=== PATIENT | male | born 1955 | race Caucasian/White ===

== ENCOUNTER 2024-12-15 14:35 | Outpatient (CLI) | payer MEDICARE, SELFPAY ==
--- NOTE | ~2024-12-15 | MR_ITS ---
MRI of the brain Clinical History: Vertigo Technique: Axial and sagittal T1-weighted images were acquired. These were followed by axial T2-weigh demond, diffusion weighted, gradient, and FLAIR images. Coronal and axial thin cut T1-weighted and T2-we ighted images were performed through the internal auditory canals. Following intravenous administrati on of 16 cc MultiHance gadolinium, T1-weighted fat-sat imaging was performed through the brain in the axial and coronal planes. Thin cut T1-weighted postcontrast imaging was performed through the administration intern al auditory canals in the axial and coronal planes. Findings: No acute infarct, internal hemorrhage, or mass lesion seen. There are mild chronic microvas cular ischemic changes in the periventricular white matter bilaterally. Ventricles and subarachnoid spaces are unremarkable. Orbits are unremarkable. Paranasal sinuses and m astoid air cells are clear. Major intracranial flow voids appear intact. Sagittal midline structures are intact. No abnormal mass lesion seen at the internal auditory canals or CP angle regions. No abnormal postcontrast enhancement identified. IMPRESSION: Mild chronic microvascular ischemic changes, otherwise unremarkable exam. Reviewed, dictated and finalized at location M.
--- OUTSIDE RECORDS SUMMARY | 2024-12-15 16:05 | XMS_ITS | Continuity of Care Document ---
Author Organization [facility] Address [address] [place] [address] Phone Care Team Providers Care Event Executive Name Role Phone Emmie Vazquez Unavailable Unavailable Procedures Procedure Date Eye Exam & Treatment Refraction Eye Exam & Treatment Progressive Lens, Plastic Frames Deluxe Tint Photochromatic, Plastic Anti-reflective Coating Tax - Medical Eye Exam & Treatment Refraction Advance Directives Directive Yes / No Effective Date File Name No Information Encounters Encounter Description Practice Location Reason(s) For Visit Diagnoses Date Provider Providers Copied on Encounter [facility], [address] [place] [address] [address], [place], [place], [id number], [place] tel:[phone] [facility] No Information 4-201 0 Taylor Camarillo [address] , [address], [place], [place], [facility], [place]. tel:[phone] [facility], [id number] [place] [address] [address], [place], [place], [id number], [place] tel:[phone] [facility] No Information November-0 7-200 9 Tayolr Camarillo [address] , [address], [place], [address], [place]. tel:[phone] [facility], [address] [place] [address] [address], [place], [place], [id number], [place] tel:[phone] [facility] No Information 8 [facility] . [address], [address], [place], [place], [id number], [place]. tel:[phone] Referring Provider: Wali Mercado OD Nav, [address] [place] [address] Dr [address], [place], [address]. tel:[phone] sulting Provider: Regino Kimball, [address] [place] [address], [place], [address]. tel:[phone] [facility], [address], [place], [place], [id number], [place] tel:[phone] [facility] No Information 8 Mercado OD Wali. [address] [place] [address] , [address], [place], [address], [place]. tel:[phone] Family History Family Member Type Diagnosis Age At Onset No Information Payers Payer name Insurance type Covered alliance party ID Authordelisaa tommywilma(s) [employer] Plan [id number] Social History Type Description Quantity Date Captured Comments Sex Male Smoking Status No Information Chief Complaint And Reason For Visit No Information Reason For Referral Reason For Referral No Information History Of Present Illness Encounter Date Complaint History Of Prese nt Illness No Information Functional Status Date Functional Assessmen t No Information Instructions Date Instruction Additional Infor mation No Information Assessments Type Assessment Date No Information Patient Care Teams Name Effective Dates (start - stop) Status Members No Information
--- OUTSIDE RECORDS SUMMARY | 2024-12-15 16:05 | XMS_ITS | Data Portability ---
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 Repeat blood work trial of cholestyramine empirically 1 scoop daily let me know in a month how that is going on CBC CMP a lipid a PSA regular medical problems are stable stop the nortriptyline and see me in 6 Not available 06/17/2024 22:16:33 11/24/2024 11/24/2024 Valium for vestibular suppression vestibular therapy MRI brain with and without to include internal auditory canals see me in 3 weeks Not available 11/29/2024 21:45:24 Plan of Treatment Reminders Order Date Submit Date Provider Last Modified By Organization Details Last Modified Time Details Appointments ANY 15 2024 11:15A Michael Ceja MD Not available Not available Not available Lab PSA, total, serum or plasma 2023 024 [facility], [address] [facility], [address], [place], [address], 06/17/2024 14:07:02 CBC w/ auto diff 2023 024 [facility], [address], [address], [place], [address], 06/17/2024 14:07:01 CMP, serum or plasma 2023 024 [facility], [address], [address], [place], [address], 06/17/2024 14:06:59 lipid panel, serum 2023 024 [facility], [address], [address], [place], [address], 06/17/2024 14:06:58 C diff toxin A+B, qual IA, stool 2023 024 [facility], [address], [address], [place], [address], 12/27/2023 11:34:04 CBC 2023 024 [facility], [address], [address], [place], [address], 12/18/2023 11:15:08 CMP, serum or plasma 2023 024 [facility], [facility] [address], [place], [address], 12/18/2023 11:15:06 culture, stool - Stool C&S 2023 024 [facility], [address], [address], [place], [address], 12/27/2023 11:34:03 lipid panel, serum 2023 024 [facility], [address] [facility], [address], [place], [address], 12/18/2023 11:15:05 Referral vestibula r therapy referral 2024 025 [email or web address] [facility] [place], [address] [facility] [place] [facility], [place], [address], 12/15/2024 09:54:00 Procedures None recorded. Surgeries None recorded. Imaging MRI, brain + internal auditory canal, w/wo contrast 2024 025 [email or web address] [facility] ([facility]), [facility] [address], [place], [address], 11/24/2024 15:44:37 Medication Orders cholestyr amine (with sugar) 4 gram oral powder 2023 024 [email or web address] [id number], [address], [place], [address], 07/10/2024 10:32:58 Flagyl 500 mg tablet 2023 024 [email or web address] [id number], [address], [place], [address], 06/16/2024 14:10:40 Patient TargetsNo targets recorded. Patient Instructions Encounter Date Encounter Id Patient Instructions Last Modified By Organization Details Last Modified Time 11/24/2024 [id number] A healthy lifestyle: care instructions [email or web address] Not available 11/24/2024 15:44:37 Reason for Referral Vestibular Therapy Referral for Vertigo Referring Physician: Linda Ceja, Internal Medicine, Encounter Date: 11/24/2024 Results Created Date Observation Date Name Description Value Unit Range Abnormal Flag Note LastModifiedBy Organization Detail LastModifiedTime 12/17/19 24 12/18/2023 LIPID PANEL cholesterol, total 170 mg/dL 100-19 9 Not Available [facility] ([facility]) [address] [place], [address], 12/18/2023 11:15:05 12/17/19 24 12/18/2023 LIPID PANEL triglyceride s 70 mg/dL 0-149 Not Available [facility] ([facility]) [address] [place], [address], 12/18/2023 11:15:05 12/17/19 24 12/18/2023 LIPID PANEL HDL cholesterol 70 mg/dL >39 Not Available [facility] ([facility]) [address] [place], [address], 12/18/2023 11:15:05 12/17/19 24 12/18/2023 LIPID PANEL VLDL cholesterol davidson 13 mg/dL 5-40 Not Available [facility] ([facility]) [address] [place], [address], 12/18/2023 11:15:05 12/17/19 24 12/18/2023 LIPID PANEL LDL chol calc ([facility]) 87 mg/dL 0-99 Not Available [facility] ([facility]) [address] [place], [address], 12/18/2023 11:15:05 12/17/19 24 12/18/2023 COMP. METAB OLIC PANEL (14) glucose 84 mg/dL 70-99 Not Available [facility] ([facility]) [address] [place], [address], 12/18/2023 11:15:06 12/17/19 24 12/18/2023 COMP. METAB OLIC PANEL (14) BUN 12 mg/dL 8-27 Not Available [facility] ([facility]) [address] [place], [address], 12/18/2023 11:15:06 12/17/19 24 12/18/2023 COMP. METAB OLIC PANEL (14) creatinine 0.99 mg/dL 0.76-1 .27 Not Available [facility] ([facility]) [address], [place], [address], 12/18/2023 11:15:06 12/17/19 24 12/18/2023 COMP. METAB OLIC PANEL (14) eGFR 82 mL/mi n/1.7 3 >59 Not Available [facility] ([facility]) [address], [place], [address], 12/18/2023 11:15:06 12/17/19 24 12/18/2023 COMP. METAB OLIC PANEL (14) BUN/creatini ne ratio 12 04-30 Not Available [facility] ([facility]) [address] [place], [address], 12/18/2023 11:15:06 12/17/19 24 12/18/2023 COMP. METAB OLIC PANEL (14) sodium 145 mmol/ L 134-14 4 above high normal Not Available [facility] ([facility]) [address] [place], [address], 12/18/2023 11:15:06 12/17/19 24 12/18/2023 COMP. METAB OLIC PANEL (14) potassium 4.2 mmol/ L 3.5-5. 2 Not Available [facility] ([place] [facility]) [address] [place], [address], 12/18/2023 11:15:06 12/17/19 24 12/18/2023 COMP. METAB OLIC PANEL (14) chloride 107 mmol/ L 96-106 above high normal Not Available [facility] ([facility]) [address] [place], [address], 12/18/2023 11:15:06 12/17/19 24 12/18/2023 COMP. METAB OLIC PANEL (14) carbon dioxide, total 24 mmol/ L 20-29 Not Available [facility] ([facility]) [address] [place], [address], 12/18/2023 11:15:06 12/17/19 24 12/18/2023 COMP. METAB OLIC PANEL (14) calcium 9.4 mg/dL 8.6-10 .2 Not Available [facility] ([facility]) [address], [place], [address], 12/18/2023 11:15:06 12/17/19 24 12/18/2023 COMP. METAB OLIC PANEL (14) protein, total 6.9 g/dL 6.0-8. 5 Not Available [facility] ([facility]) [address] [place], [address], 12/18/2023 11:15:06 12/17/19 24 12/18/2023 COMP. METAB OLIC PANEL (14) albumin 4.6 g/dL 3.9-4. 9 Not Available [facility] ([facility]) [address], [place], [address], 12/18/2023 11:15:06 12/17/19 24 12/18/2023 COMP. METAB OLIC PANEL (14) globulin, total 2.3 g/dL 1.5-4. 5 Not Available [facility] ([facility]) [address], [place], [address], 12/18/2023 11:15:06 12/17/19 24 12/18/2023 COMP. METAB OLIC PANEL (14) A/G ratio 2.0 Not Available [facility] ([facility]) [address] [place], [address], 12/18/2023 11:15:06 12/17/19 24 12/18/2023 COMP. METAB OLIC PANEL (14) bilirubin, total <0.2 mg/dL 0.0-1. 2 Not Available [facility] ([facility]) [address] [place], [address], 12/18/2023 11:15:06 12/17/19 24 12/18/2023 COMP. METAB OLIC PANEL (14) alkaline phosphatase 88 IU/L 44-121 Not Available [facility] ([facility]) [address], [place], [address], 12/18/2023 11:15:06 12/17/19 24 12/18/2023 COMP. METAB OLIC PANEL (14) AST (SGOT) 22 IU/L 0-40 Not Available [facility] ([facility]) [address], [place], [address], 12/18/2023 11:15:06 12/17/19 24 12/18/2023 COMP. METAB OLIC PANEL (14) ALT (SGPT) 18 IU/L 0-44 Not Available [facility] ([facility]) [address] [address], [place], [address], 12/18/2023 11:15:06 12/17/19 24 12/18/2023 CBC, PLATE LET, NO DIFFE RENTI AL WBC 5.2 x10e3 /uL 3.4-10 .8 Not Available [facility] ([facility]) [address], [place], [address], 12/18/2023 11:15:08 12/17/19 24 12/18/2023 CBC, PLATE LET, NO DIFFE RENTI AL RBC 4.35 x10e6 /uL 4.14-5 .80 Not Available [facility] ([facility]) [address] [place], [address], 12/18/2023 11:15:08 12/17/19 24 12/18/2023 CBC, PLATE LET, NO DIFFE RENTI AL hemoglobin 12.8 g/dL 13.0-1 7.7 below low normal Not Available [facility] ([facility]) [address], [place], [address], 12/18/2023 11:15:08 12/17/19 24 12/18/2023 CBC, PLATE LET, NO DIFFE RENTI AL hematocrit 38.5 % 37.5-5 1.0 Not Available [facility] ([facility]) [address], [place], [address], 12/18/2023 11:15:08 12/17/19 24 12/18/2023 CBC, PLATE LET, NO DIFFE RENTI AL MCV 89 fL 79-97 Not Available [facility] ([facility]) [address], [place], [address], 12/18/2023 11:15:08 12/17/19 24 12/18/2023 CBC, PLATE LET, NO DIFFE RENTI AL MCH 29.4 pg 26.6-3 3.0 Not Available [facility] ([facility]) [address], [place], [address], 12/18/2023 11:15:08 12/17/19 24 12/18/2023 CBC, PLATE LET, NO DIFFE RENTI AL MCHC 33.2 g/dL 31.5-3 5.7 Not Available [facility] ([facility]) [address], [place], [address], 12/18/2023 11:15:08 12/17/19 24 12/18/2023 CBC, PLATE LET, NO DIFFE RENTI AL RDW 12.2 % 11.6-1 5.4 Not Available [facility] ([facility]) [address] [place], [address], 12/18/2023 11:15:08 12/17/19 24 12/18/2023 CBC, PLATE LET, NO DIFFE RENTI AL platelets 304 x10e3 /uL 150-45 0 Not Available [facility] ([facility]) [address], [place], [address], 12/18/2023 11:15:08 12/19/19 24 12/20/2023 C DIFFI CILE TOXIN S A+B, EIA C difficile toxins A+B, EIA Negati ve negati ve Not Available [facility] ([facility]) [address], [place], [address], 12/20/2023 17:10:29 12/19/19 24 12/23/2023 YERSI DEEP + VIBRI O, STOOL yersinia + vibrio, stool Final report Not Available [facility] ([facility]) [address], [place], [address], 12/23/2023 17:08:38 12/19/19 24 12/23/2023 YERSI DEEP + VIBRI O, STOOL result 1 No Vibrio isolat ed. Not Available [facility] ([facility]) [address], [place], [address], 12/23/2023 17:08:38 12/19/19 24 12/23/2023 YERSI DEEP + VIBRI O, STOOL result 2 No Yersin ia isolat ed Not Available [facility] ([facility]) [address], [place], [address], 12/23/2023 17:08:38 06/16/20 24 06/17/2024 LIPID PANEL cholesterol, total 158 mg/dL 100-19 9 Not Available [facility] ([facility]) [address] [place], [address], 06/17/2024 14:06:58 06/16/20 24 06/17/2024 LIPID PANEL triglyceride s 69 mg/dL 0-149 Not Available [facility] ([facility]) [address] [place], [address], 06/17/2024 14:06:58 06/16/20 24 06/17/2024 LIPID PANEL HDL cholesterol 67 mg/dL >39 Not Available [facility] ([facility]) [address] [place], [address], 06/17/2024 14:06:58 06/16/20 24 06/17/2024 LIPID PANEL VLDL cholesterol davidson 13 mg/dL 5-40 Not Available [facility] ([facility]) [address], [place], [address], 06/17/2024 14:06:58 06/16/20 24 06/17/2024 LIPID PANEL LDL chol calc ([facility]) 78 mg/dL 0-99 Not Available [facility] ([facility]) [address], [place], [address], 06/17/2024 14:06:58 06/16/20 24 06/17/2024 COMP. METAB OLIC PANEL (14) glucose 83 mg/dL 70-99 Not Available [facility] ([facility]) [address], [place], [address], 06/17/2024 14:06:59 06/16/20 24 06/17/2024 COMP. METAB OLIC PANEL (14) BUN 13 mg/dL 8-27 Not Available [facility] ([facility]) [address] [place], [address], 06/17/2024 14:06:59 06/16/20 24 06/17/2024 COMP. METAB OLIC PANEL (14) creatinine 0.86 mg/dL 0.76-1 .27 Not Available [facility] ([facility]) [address], [place], [address], 06/17/2024 14:06:59 06/16/20 24 06/17/2024 COMP. METAB OLIC PANEL (14) eGFR 93 mL/mi n/1.7 3 >59 Not Available [facility] ([facility]) [address] [place], [address], 06/17/2024 14:06:59 06/16/20 24 06/17/2024 COMP. METAB OLIC PANEL (14) BUN/creatini ne ratio 15 10-24 Not Available [facility] ([facility]) [address], [place], [address], 06/17/2024 14:06:59 06/16/20 24 06/17/2024 COMP. METAB OLIC PANEL (14) sodium 142 mmol/ L 134-14 4 Not Available [facility] ([facility]) [address] [place], [address], 06/17/2024 14:06:59 06/16/20 24 06/17/2024 COMP. METAB OLIC PANEL (14) potassium 4.2 mmol/ L 3.5-5. 2 Not Available [facility] ([facility]) [address] [place], [address], 06/17/2024 14:06:59 06/16/20 24 06/17/2024 COMP. METAB OLIC PANEL (14) chloride 106 mmol/ L 96-106 Not Available [facility] ([facility]) [address] [place], [address], 06/17/2024 14:06:59 06/16/20 24 06/17/2024 COMP. METAB OLIC PANEL (14) carbon dioxide, total 22 mmol/ L 20-29 Not Available [facility] ([facility]) [address] [place], [address], 06/17/2024 14:06:59 06/16/20 24 06/17/2024 COMP. METAB OLIC PANEL (14) calcium 9.3 mg/dL 8.6-10 .2 Not Available [facility] ([facility]) [address] [place], [address], 06/17/2024 14:06:59 06/16/20 24 06/17/2024 COMP. METAB OLIC PANEL (14) protein, total 6.9 g/dL 6.0-8. 5 Not Available [facility] ([facility]) [address] [place], [address], 06/17/2024 14:06:59 06/16/20 24 06/17/2024 COMP. METAB OLIC PANEL (14) albumin 4.3 g/dL 3.9-4. 9 Not Available [facility] ([facility]) [address], [place], [address], 06/17/2024 14:06:59 06/16/20 24 06/17/2024 COMP. METAB OLIC PANEL (14) globulin, total 2.6 g/dL 1.5-4. 5 Not Available [facility] ([facility]) [address], [place], [address], 06/17/2024 14:06:59 06/16/20 24 06/17/2024 COMP. METAB OLIC PANEL (14) bilirubin, total 0.4 mg/dL 0.0-1. 2 Not Available [facility] ([facility]) [address], [place], [address], 06/17/2024 14:06:59 06/16/20 24 06/17/2024 COMP. METAB OLIC PANEL (14) alkaline phosphatase 104 IU/L 44-121 Not Available [facility]) [address], [place], [address], 06/17/2024 14:06:59 06/16/20 24 06/17/2024 COMP. METAB OLIC PANEL (14) AST (SGOT) 22 IU/L 0-40 Not Available [facility] ([facility]) [address], [place], [address], 06/17/2024 14:06:59 06/16/20 24 06/17/2024 COMP. METAB OLIC PANEL (14) ALT (SGPT) 18 IU/L 0-44 Not Available [facility] ([facility]) [address], [place], [address], 06/17/2024 14:06:59 06/16/20 24 06/17/2024 CBC WITH DIFFE RENTI AL/PL ATELE T WBC 7.0 x10e3 /uL 3.4-10 .8 Not Available [facility] ([facility]) [address], [place], [address], 06/17/2024 14:07:01 06/16/20 24 06/17/2024 CBC WITH DIFFE RENTI AL/PL ATELE T RBC 4.40 x10e6 /uL 4.14-5 .80 Not Available [facility] ([facility]) [address], [place], [address], 06/17/2024 14:07:01 06/16/20 24 06/17/2024 CBC WITH DIFFE RENTI AL/PL ATELE T hemoglobin 13.0 g/dL 13.0-1 7.7 Not Available [facility] ([facility]) [address], [place], [address], 06/17/2024 14:07:01 06/16/20 24 06/17/2024 CBC WITH DIFFE RENTI AL/PL ATELE T hematocrit 39.4 % 37.5-5 1.0 Not Available [facility] ([facility]) [address], [place], [address], 06/17/2024 14:07:01 06/16/20 24 06/17/2024 CBC WITH DIFFE RENTI AL/PL ATELE T MCV 90 fL 79-97 Not Available [facility] ([facility]) [address] [place], [address], 06/17/2024 14:07:01 06/16/20 24 06/17/2024 CBC WITH DIFFE RENTI AL/PL ATELE T MCH 29.5 pg 26.6-3 3.0 Not Available [facility] ([facility]) [address] [place], [address], 06/17/2024 14:07:01 06/16/20 24 06/17/2024 CBC WITH DIFFE RENTI AL/PL ATELE T MCHC 33.0 g/dL 31.5-3 5.7 Not Available [facility] ([facility]) [address], [place], [address], 06/17/2024 14:07:01 06/16/20 24 06/17/2024 CBC WITH DIFFE RENTI AL/PL ATELE T RDW 12.2 % 11.6-1 5.4 Not Available [facility] ([facility]) [address], [place], [address], 06/17/2024 14:07:01 06/16/20 24 06/17/2024 CBC WITH DIFFE RENTI AL/PL ATELE T platelets 326 x10e3 /uL 150-45 0 Not Available [facility] ([facility]) [address], [place], [address], 06/17/2024 14:07:01 06/16/20 24 06/17/2024 CBC WITH DIFFE RENTI AL/PL ATELE T neutrophils 71 % notest ab. Not Available [facility] ([facility]) [address], [place], [address], 06/17/2024 14:07:01 06/16/20 24 06/17/2024 CBC WITH DIFFE RENTI AL/PL ATELE T lymphs 21 % notest ab. Not Available [facility] ([facility]) [address], [place], [address], 06/17/2024 14:07:01 06/16/20 24 06/17/2024 CBC WITH DIFFE RENTI AL/PL ATELE T monocytes 7 % notest ab. Not Available [facility] ([facility]) [address], [place], [address], 06/17/2024 14:07:01 06/16/20 24 06/17/2024 CBC WITH DIFFE RENTI AL/PL ATELE T eos 1 % notest ab. Not Available [facility] ([facility]) [address] [facility] [address], [place], [address], 06/17/2024 14:07:01 06/16/20 24 06/17/2024 CBC WITH DIFFE RENTI AL/PL ATELE T basos 0 % notest ab. Not Available [facility] ([facility]) [address] [address], [place], [address], 06/17/2024 14:07:01 06/16/20 24 06/17/2024 CBC WITH DIFFE RENTI AL/PL ATELE T neutrophils (absolute) 5.0 x10e3 /uL 1.4-7. 0 Not Available [facility] ([facility]) [address] [address], [place], [address], 06/17/2024 14:07:01 06/16/20 24 06/17/2024 CBC WITH DIFFE RENTI AL/PL ATELE T lymphs (absolute) 1.5 x10e3 /uL 0.7-3. 1 Not Available [facility] ([facility]) [address] [facility] [address], [place], [address], 06/17/2024 14:07:01 06/16/20 24 06/17/2024 CBC WITH DIFFE RENTI AL/PL ATELE T monocytes(ab solute) 0.5 x10e3 /uL 0.1-0. 9 Not Available [facility] ([facility]) [address] [address], [place], [address], 06/17/2024 14:07:01 06/16/20 24 06/17/2024 CBC WITH DIFFE RENTI AL/PL ATELE T eos (absolute) 0.1 x10e3 /uL 0.0-0. 4 Not Available [facility] ([facility]) [address] [facility] [address], [place], [address], 06/17/2024 14:07:01 06/16/20 24 06/17/2024 CBC WITH DIFFE RENTI AL/PL ATELE T baso (absolute) 0.0 x10e3 /uL 0.0-0. 2 Not Available [facility] ([facility]) [address] [facility] [address], [place], [address], 06/17/2024 14:07:01 06/16/20 24 06/17/2024 CBC WITH DIFFE RENTI AL/PL ATELE T immature granulocytes 0 % notest ab. Not Available [facility] ([facility]) [address] [facility] [address], [place], [address], 06/17/2024 14:07:01 06/16/20 24 06/17/2024 CBC WITH DIFFE RENTI AL/PL ATELE T immature grans (abs) 0.0 x10e3 /uL 0.0-0. 1 Not Available [facility] ([facility]) [address] [facility] [address], [place], [address], 06/17/2024 14:07:01 06/16/20 24 06/17/2024 PROST ATE-S PECIF IC AG prostate specific Ag 2.3 NG/mL 0.0-4. 0 Onel ECLIA metho dolog y. Accor ding to the Ameri can [employer] g[employer] iatio n, Serum PSA shoul d decre ase and remai n at undet ectab le level s after radic al prost atect gil. The AUA defin es bioch emica l recur rence as an initi al PSA value 0.2 ng/mL or great er follo wed by a subse quent confi rmato ry PSA value 0.2 ng/mL or great er. Value s obtai cindi with diffe rent assay metho ds or kits canno t be used inter mai eably . Resul ts canno t be inter prete d as absol amaury evide nce of the prese nce or absen ce of erika sulma brasher se. Not Available [facility] ([facility]) [address] [address], [place], [address], 06/17/2024 14:07:02 Result Notes None recorded. Problems Name Problem SNOMED Code Status Onset Date Resolution Date Notes Provider Name and Address Organization Details Recorded Time Diarrhea 70776591 Active 2023 Jose Theresamike PAOLO null, [place] - [facility] 4 16:25:21 Hyperlipidemia 07435277 Active 2023 Jose Woods [place] null, [place] [facility] 4 16:25:22 Body mass index 20-24 - normal 770122970 Active 2024 Jose Woods [place], [place] [facility] 5 10:06:26 Overweight 657683711 Active 2024 Jose Woods [place], [place] - [facility] 5 10:06:27 Vertigo 496081204 Active 2024 Jose Woods [place] null, [place] - [facility] 5 10:06:28 Problem Notes None recorded. Procedures Surgical History Date Name Laterality Status Provider Name and Address Organization Details Recorded Time Eye Surgery completed Sarika Russo [place] - [facility] 12/17/2023 15:19:33 Imaging Results None recorded. Procedure Notes None recorded. Medical Equipment None Reported. Allergies No known drug allergies Medications Name Sig Start Date Stop Date Status Note LastModified by Organization Details LastModified Time celecoxib 200 mg capsule TAKE 1 CAPSULE BY MOUTH TWICE A DAY NEEDED active Not Available Not Available No t Available doxycycline hyclate 100 mg capsule 11/24 completed Not Available Not Available Not Available metronidazo le 500 mg tablet TAKE 1 TABLET BY MOUTH THREE TIMES A DAY X14 DAYS 06/16 completed Not Available Not Available Not Available peg-electro lyte solution 420 gram oral solution TAKE 1/2 OF THE SOLUTION AT 5PM ON 03-26 AND THE OTHER HALF AT 5 AM ON 03-27 completed Not Available Not Available Not Available nortriptyli ne 25 mg capsule TAKE 1 CAPSULE BY MOUTH EVERY DAY IN THE EVENING 06/17 completed Not Available Not Available Not Available bisacodyl 5 mg tablet,law yed release TAKE 6 TABLETS BY MOUTH AT 8 AM ON 03-26 completed Not Available Not Available Not Available diazepam 5 mg tablet TAKE 1/2 OF A TABLET BY MOUTH TWICE A DAY active Not Available Not Available No t Available cholestyram ine (with sugar) 4 gram oral powder DISSOLVE 1 SCOOP IN LIQUID AND TAKE ONCE DAILY active Not Available Not Available No t Available rosuvastati n 10 mg tablet TAKE 1 TABLET BY MOUTH EVERY DAY active Not Available Not Available No t Available Paxlovid 300 mg (150 mg x 2)-100 mg tablets in a dose pack USE DIRECTED 12/16 completed Not Available Not Available Not Available Vitals Date Recorded Body height Body mass index (BMI) Body weight Heart rate Oxygen saturation Oxygen saturation in Arterial blood by Pulse oximetry Systolic blood pressure Diastolic blood pressure Provider Name and Address Organization Details Last Updated DateTime 5 177.8 cm 24.9 kg/m2 64809.3 5 g 76 /min 99 % 99 % 140 mm[Hg] 80 mm[Hg] Dyan Gold MA [facility] 5 09:36:41 Date Recorded Body height Body mass index (BMI) Body weight Heart rate Oxygen saturation Oxygen saturation in Arterial blood by Pulse oximetry Systolic blood pressure Diastolic blood pressure Provider Name and Address Organization Details Last Updated DateTime 4 177.8 cm 24.9 kg/m2 14545.2 8 g 69 /min 97 % 97 % 132 mm[Hg] 74 mm[Hg] Sairka Russo MA [facility] 4 15:02:56 Date Recorded Body height Body mass index (BMI) Body weight Heart rate Oxygen saturation Oxygen saturation in Arterial blood by Pulse oximetry Systolic blood pressure Diastolic blood pressure Provider Name and Address Organization Details Last Updated DateTime 4 177.8 cm 24.9 kg/m2 70418.6 4 g 78 /min 97 % 97 % 132 mm[Hg] 84 mm[Hg] Katlyn Plascencia MA [facility] 4 14:02:57 Social History Question Answer Notes LastModified by Organizat ion Details LastModified Time Tobacco Smoking Status Former Smoker Sarika Russo MA [facility] 12/17/2023 15:00:57 Do You Have An Advance Directive? No Information not available 06/16/2024 Are You Blind Or Do You Have Difficulty Seeing? No Information not available 12/17/2023 In The 14 Days Before Symptom Onset, Have You Had Close Contact With A Laboratory-confir med COVID-19 While That Case Was Ill? No Information not available 06/16/2024 In The 14 Days Before Symptom Onset, Have You Had Close Contact With A Person Who Is Under Investigation For COVID-19 While That Person Was Ill? No Information not available 06/16/2024 Have You Been To An Area Known To Be High Risk For COVID-19? No Information not available 06/16/2024 Are You Deaf Or Do You Have Serious Difficulty Hearing? Yes Hearing Aids Information not available 12/17/2023 Are There Any Guns Present In Your Home? No Information not available 06/16/2024 What Was The Date Of Your Most Recent Tobacco Screening? 06/16/2024 Information not available 06/16/2024 What Is Your Relationship Status? Information not available 12/17/2023 Do You Use Your Seat Belt Or Car Seat Routinely? Yes Information not available 06/16/2024 Do You Have Smoke And Carbon Monoxide Detectors In Your Home? Yes Information not available 06/16/2024 How Much Tobacco Do You Smoke? 1 PPD Information not available 12/17/2023 Do You Use Sunscreen Routinely? No Information not available 06/16/2024 Sex: Unknown Functional Status Question Answer Note LastModified by Organizat ion Details LastModified Time What is your level of alcohol consumption? Occasional Information not available 12/17/2023 Are you able to care for yourself? Yes Information not available 12/17/2023 Mental Status None recorded. Family History Relationship Description Onset Age of this Age Resolved Age Notes LastModified by Organization Details LastModified Time Mother Cerebrovascu lar accident [email or web address] Not available 05/2024 15:18:27 Mother Coronary arterioscler osis apaytonma Not available 2023 15:18:42 Mother Heart disease apaytonma Not available 2023 15:18:55 Mother Hypertensive disorder apaytonma Not available 2023 15:19:03 Father Coronary arterioscler osis apaytonma Not available 2023 15:18:42 Father Heart disease apaytonma Not available 2023 15:18:55 Father Hypercholest erolemia apaytonma Not available 2023 15:19:07 Father Malignant neoplasm of prostate apaytonma Not available 2023 15:19:13 Sister Diabetes mellitus apaytonma Not available 2023 15:18:48 Sister Hypertensive disorder apaytonma Not available 2023 15:19:03 Medical History Condition Response Anxiety Disorder Y Muscle, Joint, or Bone Problems Y Acid Reflux (GERD) Y High Cholesterol Y Immunizations Vaccine Type Date Status Note Provider Nam e and Address Organization Details Recorded Time Influenza, split virus, quadrivalent, preservative 6 completed Jose Woods [place] null, [place] - [facility] 06/16/2024 14:49:11 Influenza, split virus, quadrivalent, preservative 7 completed Jose Woods [place] [facility] 06/16/2024 14:49:11 Influenza, adjuvanted, trivalent, PF 9 completed Jose Woods [place] [facility] 06/16/2024 14:49:11 Influenza, high-dose, quadrivalent, PF 1 completed Jose [place] [facility] 06/16/2024 14:49:11 Influenza, high-dose, quadrivalent, PF 2 completed Jose [place] [facility] 06/16/2024 14:49:11 COVID-19, mRNA, LNP-S, PF, 30 mcg/0.3 mL dose 2 completed Jose [place] [facility] 06/16/2024 14:49:11 COVID-19, mRNA, LNP-S, PF, 30 mcg/0.3 mL dose 1 completed Jose [place] [facility] 06/16/2024 14:49:11 COVID-19, mRNA, LNP-S, PF, 30 mcg/0.3 mL dose 1 completed Jose [place] [facility] 06/16/2024 14:49:11 COVID-19, mRNA, LNP-S, PF, 30 mcg/0.3 mL dose 1 completed Jose [place] [facility] 06/16/2024 14:49:11 Tdap 8 completed Jose [place] [facility] 06/16/2024 14:49:11 Influenza, split virus, trivalent, preservative 4 completed Jose [place] [facility] 06/16/2024 14:49:11 Influenza, split virus, trivalent, preservative 3 completed Jose [place] [facility] 06/16/2024 14:49:11 Td (adult), 2 Lf tetanus toxoid, preservative free, adsorbed 8 completed Jose [place] [facility] 06/16/2024 14:49:11 Influenza, split virus, quadrivalent, PF 8 completed Jose [place] [facility] 06/16/2024 14:49:11 Past Encounters Encounter ID Performer Location Encounter Start Date Encounter Closed Date Diagnosis/Indication Diagnosis SNOMED-CT Code Diagnosis ICD10 Code Diagnosis Note [id number] [facility] [address] [place] [address] [id number] 12/17/2023 14:43:46 12/17/2023 16:31:13 Diarrhea 15032320 R19.7 Hyperlipidemia 05157445 E78.5 Fibromyalgia 019256364 M 79.7 Gastroesop hageal reflux disease without esophagitis 631192246 K21.9 Vitamin D below reference range 760675488 E55.9 [id number] MD Don Thomas (Adult Med) [address] [place] [address] [phone] 0 06/16/2024 13:33:38 06/16/2024 14:56:58 Body mass index 20-24 - normal 936945263 Z68.24 Hyperlipidemia 99098610 E78.5 Long-term drug therapy 811124722 Z79.891 Screening for malignant neoplasm of prostate 577028091 Z12.5 Diarrhea 99383842 R19.7 Fibromyalgia 157338420 M 79.7 Gastroesop hageal reflux disease without esophagitis 603267571 K21.9 Vitamin D below reference range 961888740 E55.9 [id number] Linda Ceja MD [facility] (Adult Med) [address] [place] [address] [id number] 11/24/2024 09:27:26 11/24/2024 10:18:04 Body mass index 20-24 - normal 266836213 Z68.24 Overweight 475775353 E66 .3 Vertigo 930961704 R42 Health Concerns Section Related Observation LastModified by Organization Detai ls LastModified Time None Recorded Concern Status LastModified by Organization Details LastModified Time None Recorded Advance Directives Directive N: Payers Encounter Date Sequence Insurance Name Policy Number Policy Dominguez Covered Member ID Dominguez Member ID Guarantor Name 12/17/2023 [facility] (MEDICARE REPLACEMENT/A DVANTAGE - PPO) [id number] Cresencio Rodrigues [id number] Cresencio Rodrigues 06/16/2024 [facility] (MEDICARE REPLACEMENT/A DVANTAGE - PPO) [id number] Cresencio Rodrigues [id number] Cresencio Rodrigues 11/24/2024 1 [facility] (MEDICARE REPLACEMENT/A DVANTAGE - PPO) [id number] Cresencio Rodrigues [id number] Cresencio Rodrigues Notes Date Note Type Note Provider Name and Address Organization Details Recorded Time 12/17/2023 text/html 68-year-old with fibromyalgia. Hyperlipidemia. GERD that has been controlled conservatively. Low vitamin-D level. Diarrhea for 4-5 months without weight loss no blood mucus travel fever chills does not wake him up at night no weight loss Linda Ceja MD Attn: [address] [place], [address], [facility] 01/11/2024 23:47:44 06/16/2024 text/html diarrhea persist s saw GI trialing a TCA and drilling side effects are too much for him in the diarrhea did not get any better dyslipidemia trying to watch his diet GERD stable hyperlipidemia watching his fat intake and taking his rosuvastatin fibromyalgia is doing okay Linda Ceja MD Attn: [address] , [place], [address], [facility] 06/17/2024 22:16:58 11/24/2024 text/html He has had for a couple of weeks kind of some dizziness and vertiginous feelings more when he looks up [id number] he looks down he feels like he is swinging ringing in the ears from time to time no nausea no vomiting no blurred vision or double vision no numbness or tingling in arms and legs speech has been fluent. Linda Ceja MD Attn: [address] , [place], [address], [facility] 11/29/2024 21:46:38
--- OUTSIDE RECORDS SUMMARY | 2024-12-15 16:05 | XMS_ITS | Clinical Summary ---
Author Organization [facility] Address [address] [place] [address] Care Team Providers Care Household Appliance Installer Name Role Phone Gilberto Ceja MD Primary Care Provider [phone] Source Comments [facility],non-owned Affiliates and Associated Physician Practices is amultiple site organization consisting of ambulatory clinics and hospital sitesin [place], [place], [place] and [place]. This disclosure is being madepursuant to the Care Everywhere program and may not contain all information available regarding this patient. Last updated 18.[facility] Social History Tobacco Use Types Packs/Day Years Used Date Smoking Tobacco: Never Assessed Sex and Gender Information Value Date Recorded Sex Assigned at Not on file Legal Sex Male 2:49 PM CDT Gender Identity Not on file Sexual Orientation Not on file Plan of Treatment Health Maintenance Due Date Last Done Comments COLOGUARD (AGES 45-75) - COL ON CA SCREENING 1954 COLON MONITORING 1954 COLONOSCOPY - COLON CA SCREENING 1954 CT COLONOGRAPHY - COLON CA SCREENING 1954 Colorectal Cancer Screening 1954 FIT - COLON CA SCREENING 1954 FLEX SIG - COLON CA SCREENING 1954 LIPID TESTING 1954 HEPATITIS C SCREENING 03/05/1972 DTAP/TDAP/TD VACCINES (1 - Tdap) 1973 PNEUMOCOCCAL VACCINE 50+ (1 of 1 - PCV) 2004 ZOSTER VACCINE (1 of 2) 2004 COVID-19 VACCINE ( - 2023-2 5 season) 2024 DEPRESSION SCREENING 07/08/2024 INFLUENZA VACCINE (Season Ended) 2025 Respiratory Syncytial Virus (RSV) Vaccine Pt: or over 60 yrs (1 - 1-dose 75+ series) 2029 HEPATITIS B VACCINE Aged Out No longe r eligible based on patient's age to complete this topic HIB VACCINE Aged Out No longer eligi ble based on patient's age to complete this topic HPV VACCINE Aged Out No longer eligi ble based on patient's age to complete this topic MENINGOCOCCAL (Group B) VACC INE SHARED DECISION-MAKING Aged Out No longer eligibl e based on patient's age to complete this topic MENINGOCOCCAL GROUPS A/C/Y/W VACCINE Aged Out No longer eligible b ased on patient's age to complete this topic [place] [address] [place] [address] Care Teams Household Appliance Installer Relationship Specialty Start Date End Date Gilberto Ceja MD PCP - General Internal Medicine 05/01/17
--- OUTSIDE RECORDS SUMMARY | 2024-12-15 16:05 | XMS_ITS | CONTINUITY OF CARE DOCUMENT ---
Author Name marcelino benson Address Unknown Organization [facility] Office Address [address] [place] [address] Phone [phone] Care Team Providers Care Hub Cutter Name Role Phone marcelino benson Unavailable Unavailable
--- OUTSIDE RECORDS SUMMARY | 2024-12-15 16:05 | XMS_ITS | Data Portability ---
Author Organization [place] - [facility] [employer], Main Office Address [address] [place] [address] Assessment Encounter Date Assessment Date Assessment LastModified by Organization Details LastModified Time 12/17/2022 12/17/2022 Blood work has been ordered diagnosis have been discussed all questions have been answered we will continue with current therapy see me back in 6 months. [email or web address] Not available 12/22/2022 21:34:56 06/24/2023 06/24/2023 Hydrocortisone cream continue current therapy diagnosis discussed as well as blood work follow-up in 6 months [email or web address] Not available 06/24/2023 23:07:41 Plan of Treatment Reminders Order Date Submit Date Provider Last Modified By Organization Details Last Modified Time Details Appointments None recorded. Lab PSA, serum or plasma 023 023 [facility] (Lab), [address] [place], [address], 3 09:32:03 vitamin D, 25-hydrox y, total, serum 023 023 [facility] (Lab), [address] [place], [address], 3 09:32:03 CMP, serum or plasma 023 023 [facility] (Lab), [address] [place], [address], 3 19:28:25 lipid panel, serum 023 023 [facility] (Lab), [address] [place], [address], 19:28:27 CBC w/ auto diff 023 023 [facility] (Lab), [address] [place], [address], 17:48:15 Referral None recorded. Procedures None recorded. Surgeries None recorded. Imaging None recorded. Medication Orders None recorded. Patient TargetsNo targets recorded. Patient InstructionsNo instructions recorded. Reason for Referral None Reported. Results Created Date Observation Date Name Description Value Unit Range Abnormal Flag Note LastModifiedBy Organization Detail LastModifiedTime 06/09/2006/09/2022 COLOG UARD cologuard result cancel led - order d not applic able Not Available [facility] (Cologuard Orders Only) [address], [place], [address], 06/09/2022 08:35:50 06/27/20 21 06/27/2021 PSA SCREE N PSA medicare screen 1.48 NG/mL 0.00-4 .00 Not Available [facility] (Lab) [address] [place], [address], 06/27/2021 17:48:27 06/27/20 21 06/27/2021 VITAM IN D 25-HY DROXY [id number] 44.8 NG/mL 30-100 Vitam in D Statu s: Defic ient: <20 ng/mL Insuf ficie nt: 20-29 ng/mL Suffi cient : 30-10 0 ng/mL Not Available [facility] (Lab) [address] [place], [address], 06/27/2021 17:35:28 06/27/20 21 06/27/2021 LIPID PANEL cholesterol 190 mg/dL 140-19 9 [facility] HENRY NSUS RECOM MENDA TION FOR ONEAL STERO L: ADULT CHILD LOW RISK: <200 <170 BORDE RLINE : <200- 239 ----- HIGH RISK: >240 >200 Not Available [facility] (Lab) [address] [place], [address], 06/27/2021 17:11:36 06/27/20 21 06/27/2021 LIPID PANEL triglyceride s 106 mg/dL 0-150 NIH HENRY NSUS REPOR T RECOM MENDA TION FOR TRIGL YCERI BRE: ADULT CHILD LOW RISK: <150 ----- BODER LINE: 150-1 99 ----- HIGH RISK: >200 ----- Not Available [facility] (Lab) [address] [place], [address], 06/27/2021 17:11:36 06/27/20 21 06/27/2021 LIPID PANEL HDL cholesterol 67 mg/dL 40- Not Available [facility] (Lab) [address] [place], [address], 06/27/2021 17:11:36 06/27/20 21 06/27/2021 LIPID PANEL LDL cholesterol, calculated 102 mg/dL 0-130 NIH HENRY NSUS REPOR T RECOM MENDA TIONS FOR LDL: ADULT CHILD LOW RISK <130 <110 (OPTI MAL LDL) <100 ----- BORDE RLINE : 130-1 59 ----- HIGH RISK: >160 >130 A TRIGL YCERI DE RESUL T >400 INVAL IDATE S THE CALCU LATIO N FOR LDL FRACT IONAT ION - THE LDL RESUL T WILL NOT BE REPOR ENRICO. Not Available [facility] (Lab) [address] [place], [address], 06/27/2021 17:11:36 06/27/20 21 06/27/2021 COMPR EHENS SOCORRO METAB OLIC PANEL sodium 139 mmol/ L 137-14 5 Not Available [facility] (Lab) [address] [place], [address], 06/27/2021 17:11:34 06/27/20 21 06/27/2021 COMPR EHENS SOCORRO METAB OLIC PANEL potassium 4.9 mmol/ L 3.5-5. 1 Not Available [facility] (Lab) [address] [place], [address], 06/27/2021 17:11:34 06/27/20 21 06/27/2021 COMPR EHENS SOCORRO METAB OLIC PANEL chloride 106 mmol/ L 98-107 Not Available [facility] (Lab) [address] [place], [address], 06/27/2021 17:11:34 06/27/20 21 06/27/2021 COMPR EHENS SOCORRO METAB OLIC PANEL carbon dioxide 26 mmol/ L 22-30 Not Available [facility] (Lab) [address] [facility] [place], [address], 06/27/2021 17:11:34 06/27/20 21 06/27/2021 COMPR EHENS SOCORRO METAB OLIC PANEL agap 11.9 mmol/ L 14-22 low Not Available [facility] (Lab) [address] [place], [address], 06/27/2021 17:11:34 06/27/20 21 06/27/2021 COMPR EHENS SOCORRO METAB OLIC PANEL glucose 85 mg/dL 70-99 Not Available [facility] (Lab) [address] [place], [address], 06/27/2021 17:11:34 06/27/20 21 06/27/2021 COMPR EHENS SOCORRO METAB OLIC PANEL BUN 15 mg/dL 8-19 Not Available [facility] (Lab) [address] [place], [address], 06/27/2021 17:11:34 06/27/20 21 06/27/2021 COMPR EHENS SOCORRO METAB OLIC PANEL creatinine 0.84 mg/dL 0.66-1 .25 Not Available [facility] (Lab) [address] [place], [address], 06/27/2021 17:11:34 06/27/20 21 06/27/2021 COMPR EHENS SOCORRO METAB OLIC PANEL GFR >60 Refer ence Range : [place] ge GFR Healt hy Adult : >60 mL/mi n/1.7 3 m2 Chron ic Kidne y Disea se: 15-60 mL/mi n/1.7 3 m2 Kidne y Failu re: <15/m L/min /1.73 m2 www.n iddk. nih.g ov The MDRD study equat ion has not been valid ated in child gael <18 years of age; pregn ant women ; the elder ly >85 years of age; or in some racia l or ethni c subgr oups, such as Hispa nics. Outsi de the valid ated kyrie eters , estim ated GFR is less accur ate, requi ring clini davidson judgm ent on a case- by-ca se basis . Clini davidson inter preta tion for other races and ages must be made by the clini noemi. The MDRD study equat ion has not been valid ated for the evalu ation of serum creat inine relat ed to nutri latrice l statu s or medic ation usage . For perso ns <18 years of age, a pedia tric GFR calcu lator is avail able on the [facility] websi te: https ://wang nathan.long oneal.o rg/pr ofess ional s/kdo qi/gf r_cal culat or Not Available [facility] (Lab) [address] [place], [address], 06/27/2021 17:11:34 06/27/20 21 06/27/2021 COMPR EHENS SOCORRO METAB OLIC PANEL alkaline phosphatase 70 U/L 38-126 Not Available [facility] (Lab) [address] [place], [address], 06/27/2021 17:11:34 06/27/20 21 06/27/2021 COMPR EHENS SOCORRO METAB OLIC PANEL alanine aminotransfe rase 25 U/L 0-50 Not Available [facility] (Lab) [address] [place], [address], 06/27/2021 17:11:34 06/27/20 21 06/27/2021 COMPR EHENS SOCORRO METAB OLIC PANEL aspartate aminotransfe rase 30 U/L 15-46 Not Available [facility] (Lab) [address] [place], [address], 06/27/2021 17:11:34 06/27/20 21 06/27/2021 COMPR EHENS SOCORRO METAB OLIC PANEL bilirubin, total 0.40 mg/dL 0.20-1 .30 Not Available [facility] (Lab) [address] [place], [address], 06/27/2021 17:11:34 06/27/20 21 06/27/2021 COMPR EHENS SOCORRO METAB OLIC PANEL calcium 9.1 mg/dL 8.4-10 .2 Not Available [facility] (Lab) [address] [place], [address], 06/27/2021 17:11:34 06/27/20 21 06/27/2021 COMPR EHENS SOCORRO METAB OLIC PANEL total protein 6.8 g/dL 6.3-8. 2 Not Available [facility] (Lab) [address] [place], [address], 06/27/2021 17:11:34 06/27/20 21 06/27/2021 COMPR EHENS SOCORRO METAB OLIC PANEL albumin 4.3 g/dL 3.0-4. 4 Not Available [facility] (Lab) [address] [place], [address], 06/27/2021 17:11:34 06/27/20 21 06/27/2021 COMPR EHENS SOCORRO METAB OLIC PANEL globulin 2.5 g/dL 2.6-4. 2 low Not Available [facility] (Lab) [address] [place], [address], 06/27/2021 17:11:34 06/27/20 21 06/27/2021 COMPR EHENS SOCORRO METAB OLIC PANEL A/G ratio 1.7 ratio 1.0-2. 0 Not Available [facility] (Lab) [address] [place], [address], 06/27/2021 17:11:34 06/27/20 21 06/27/2021 CBC/C OMPLE TE BLD COUNT W/DIF F white blood cells 6.2 x10'3 /uL 4.2-10 .8 Not Available [facility] (Lab) [address] [place], [address], 06/27/2021 15:52:14 06/27/20 21 06/27/2021 CBC/C OMPLE TE BLD COUNT W/DIF F red blood cells 4.29 x10'6 /uL 4.10-5 .80 Not Available [facility] (Lab) [address] [place], [address], 06/27/2021 15:52:14 06/27/20 21 06/27/2021 CBC/C OMPLE TE BLD COUNT W/DIF F hemoglobin 12.9 g/dL 13.2-1 7.0 low Not Available [facility] (Lab) [address] [place], [address], 06/27/2021 15:52:14 06/27/20 21 06/27/2021 CBC/C OMPLE TE BLD COUNT W/DIF F hematocrit 39.6 % 39.3-5 0.0 Not Available [facility] (Lab) [address] [facility] [place], [address], 06/27/2021 15:52:14 06/27/20 21 06/27/2021 CBC/C OMPLE TE BLD COUNT W/DIF F mean red cell volume 92.3 fL 80.0-9 7.0 Not Available [facility] (Lab) [address] [place], [address], 06/27/2021 15:52:14 06/27/20 21 06/27/2021 CBC/C OMPLE TE BLD COUNT W/DIF F mean red cell hemoglobin 30.1 pg 27.0-3 3.0 Not Available [facility] (Lab) [address] [place], [address], 06/27/2021 15:52:14 06/27/20 21 06/27/2021 CBC/C OMPLE TE BLD COUNT W/DIF F mean RBC HGB concentratio n 32.6 g/dL 31.0-3 6.0 Not Available [facility] (Lab) [address] [place], [address], 06/27/2021 15:52:14 06/27/20 21 06/27/2021 CBC/C OMPLE TE BLD COUNT W/DIF F red cell distribution width 12.7 % 11.8-1 5.5 Not Available [facility] (Lab) [address] [place], [address], 06/27/2021 15:52:14 06/27/20 21 06/27/2021 CBC/C OMPLE TE BLD COUNT W/DIF F platelets 315 x10'3 /uL 150-40 0 Not Available [facility] (Lab) [address] [place], [address], 06/27/2021 15:52:14 06/27/20 21 06/27/2021 CBC/C OMPLE TE BLD COUNT W/DIF F mean platelet volume 10.6 fL 9.0-12 .4 Not Available [facility] (Lab) [address] [place], [address], 06/27/2021 15:52:14 06/27/20 21 06/27/2021 CBC/C OMPLE TE BLD COUNT W/DIF F neutrophils 54.8 % 39.0-7 2.0 Not Available [facility] (Lab) [address] [place], [address], 06/27/2021 15:52:14 06/27/20 21 06/27/2021 CBC/C OMPLE TE BLD COUNT W/DIF F lymphocytes 38.1 % 16.0-4 7.0 Not Available [facility] (Lab) [address] [place], [address], 06/27/2021 15:52:14 06/27/20 21 06/27/2021 CBC/C OMPLE TE BLD COUNT W/DIF F monocytes 6.2 % 5.0-12 .0 Not Available [facility] (Lab) [address] [place], [address], 06/27/2021 15:52:14 06/27/2006/27/2021 CBC/C OMPLE TE BLD COUNT W/DIF F eosinophils 0.5 % 1.0-7. 0 low Not Available [facility] (Lab) [address] [place], [address], 06/27/2021 15:52:14 06/27/20 21 06/27/2021 CBC/C OMPLE TE BLD COUNT W/DIF F basophils 0.2 % 0.0-2. 0 Not Available [facility] (Lab) [address] [place], [address], 06/27/2021 15:52:14 06/27/20 21 06/27/2021 CBC/C OMPLE TE BLD COUNT W/DIF F immature granulocytes 0.2 % 0.00-0 .50 Not Available [facility] (Lab) [address] [place], [address], 06/27/2021 15:52:14 06/27/20 21 06/27/2021 CBC/C OMPLE TE BLD COUNT W/DIF F neutrophils, absolute count 3.39 x10'3 /uL 1.5-8. 0 Not Available [facility] (Lab) [address] [place], [address], 06/27/2021 15:52:14 06/27/20 21 06/27/2021 CBC/C OMPLE TE BLD COUNT W/DIF F lymphocytes, absolute count 2.35 x10'3 /uL 1.07-3 .43 Not Available [facility] (Lab) [address] [place], [address], 06/27/2021 15:52:14 06/27/2006/27/2021 CBC/C OMPLE TE BLD COUNT W/DIF F monocytes, absolute count 0.38 x10'3 /uL 0.29-0 .99 Not Available [facility] (Lab) [address] [place], [address], 06/27/2021 15:52:14 06/27/20 21 06/27/2021 CBC/C OMPLE TE BLD COUNT W/DIF F eosinophils, absolute count 0.03 x10'3 /uL 0.02-0 .53 Not Available [facility] (Lab) [address] [place], [address], 06/27/2021 15:52:14 06/27/20 21 06/27/2021 CBC/C OMPLE TE BLD COUNT W/DIF F basophils, absolute count 0.01 x10'3 /uL 0.01-0 .08 Not Available [facility] (Lab) [address] [place], [address], 06/27/2021 15:52:14 06/27/2006/27/2021 CBC/C OMPLE TE BLD COUNT W/DIF F immature granulocytes ,absolute 0.01 x10'3 /uL 0.00-0 .05 Not Available [facility] (Lab) [address] [place], [address], 06/27/2021 15:52:14 06/27/20 21 06/27/2021 CBC/C OMPLE TE BLD COUNT W/DIF F nucleated red blood cells 0.0 % -0 Not Available [facility] (Lab) [address] [place], [address], 06/27/2021 15:52:14 06/27/20 21 06/27/2021 CBC/C OMPLE TE BLD COUNT W/DIF F NRBC# 0.00 x10'3 /uL Not Available [facility] (Lab) [address] [place], [address], 06/27/2021 15:52:14 12/13/19 22 12/12/2021 LIPID PANEL cholesterol 165 mg/dL 140-19 9 NIH HENRY NSUS RECOM MENDA TION FOR ONEAL STERO L: ADULT CHILD LOW RISK: <200 <170 BORDE RLINE : <200- 239 ----- HIGH RISK: >240 >200 Not Available [facility] (Lab) [address] [place], [address], 12/12/2021 19:20:57 12/13/19 22 12/12/2021 LIPID PANEL triglyceride s 84 mg/dL 0-150 NIH HENRY NSUS REPOR T RECOM MENDA TION FOR TRIGL YCERI BRE: ADULT CHILD LOW RISK: <150 ----- BODER LINE: 150-1 99 ----- HIGH RISK: >200 ----- Not Available [facility] (Lab) [address] [place], [address], 12/12/2021 19:20:57 12/13/19 22 12/12/2021 LIPID PANEL HDL cholesterol 71 mg/dL 40- Not Available [facility] (Lab) [address] [place], [address], 12/12/2021 19:20:57 12/13/19 22 12/12/2021 LIPID PANEL LDL cholesterol, calculated 77 mg/dL 0-130 NIH HENRY NSUS REPOR T RECOM MENDA TIONS FOR LDL: ADULT CHILD LOW RISK <130 <110 (OPTI MAL LDL) <100 ----- BORDE RLINE : 130-1 59 ----- HIGH RISK: >160 >130 A TRIGL YCERI DE RESUL T >400 INVAL IDATE S THE CALCU LATIO N FOR LDL FRACT IONAT ION - THE LDL RESUL T WILL NOT BE REPOR ENRICO. Not Available [facility] (Lab) [address] [place], [address], 12/12/2021 19:20:57 12/13/19 22 12/12/2021 COMPR EHENS SOCORRO METAB OLIC PANEL sodium 142 mmol/ L 137-14 5 Not Available [facility] (Lab) [address] [place], [address], 12/12/2021 19:20:54 12/13/19 22 12/12/2021 COMPR EHENS SOCORRO METAB OLIC PANEL potassium 4.2 mmol/ L 3.5-5. 1 Not Available [facility] (Lab) [address] [place], [address], 12/12/2021 19:20:54 12/13/19 22 12/12/2021 COMPR EHENS SOCORRO METAB OLIC PANEL chloride 107 mmol/ L 98-107 Not Available [facility] (Lab) [address] [place], [address], 12/12/2021 19:20:54 12/13/19 22 12/12/2021 COMPR EHENS SOCORRO METAB OLIC PANEL carbon dioxide 24 mmol/ L 22-30 Not Available [facility] (Lab) [address] [place], [address], 12/12/2021 19:20:54 12/13/19 22 12/12/2021 COMPR EHENS SOCORRO METAB OLIC PANEL anion gap 15.2 mmol/ L 14-22 Not Available [facility] (Lab) [address] [place], [address], 12/12/2021 19:20:54 12/13/19 22 12/12/2021 COMPR EHENS SOCORRO METAB OLIC PANEL glucose 85 mg/dL 70-99 Not Available [facility] (Lab) [address] [place], [address], 12/12/2021 19:20:54 12/13/19 22 12/12/2021 COMPR EHENS SOCORRO METAB OLIC PANEL BUN 14 mg/dL 8-19 Not Available [facility] (Lab) [address] [place], [address], 12/12/2021 19:20:54 12/13/19 22 12/12/2021 COMPR EHENS SOCORRO METAB OLIC PANEL creatinine 0.95 mg/dL 0.66-1 .25 Not Available [facility] (Lab) [address] [place], [address], 12/12/2021 19:20:54 12/13/19 22 12/12/2021 COMPR EHENS SOCORRO METAB OLIC PANEL GFR >60 Refer ence Range : [place] ge GFR Healt hy Adult : >60 mL/mi n/1.7 3 m2 Chron ic Kidne y Disea se: 15-60 mL/mi n/1.7 3 m2 Kidne y Failu re: <15/m L/min /1.73 m2 www.n iddk. nih.g ov The MDRD study equat ion has not been valid ated in child gael <18 years of age; pregn ant women ; the elder ly >85 years of age; or in some racia l or ethni c subgr oups, such as Hispa nics. Outsi de the valid ated kyrie eters , estim ated GFR is less accur ate, requi ring clini davidson judgm ent on a case- by-ca se basis . Clini davidson inter preta tion for other races and ages must be made by the clini noemi. The MDRD study equat ion has not been valid ated for the evalu ation of serum creat inine relat ed to nutri latrice l statu s or medic ation usage . For perso ns <18 years of age, a pedia tric GFR calcu lator is avail able on the [facility] websi te: https ://wang oneal.brain huang/pr ofess ional s/kdo qi/gf r_cal culat or Not Available [facility] (Lab) [address] [place], [address], 12/12/2021 19:20:54 12/13/19 22 12/12/2021 COMPR EHENS SOCORRO METAB OLIC PANEL alkaline phosphatase 79 U/L 38-126 Not Available [facility] (Lab) [address] [place], [address], 12/12/2021 19:20:54 12/13/19 22 12/12/2021 COMPR EHENS SOCORRO METAB OLIC PANEL alanine aminotransfe rase 23 U/L 0-50 Not Available [facility] (Lab) [address] [place], [address], 12/12/2021 19:20:54 12/13/19 22 12/12/2021 COMPR EHENS SOCORRO METAB OLIC PANEL aspartate aminotransfe rase 29 U/L 15-46 Not Available [facility] (Lab) [address] [place], [address], 12/12/2021 19:20:54 12/13/19 22 12/12/2021 COMPR EHENS SOCORRO METAB OLIC PANEL bilirubin, total 0.30 mg/dL 0.20-1 .30 Not Available [facility] (Lab) [address] [place], [address], 12/12/2021 19:20:54 12/13/19 22 12/12/2021 COMPR EHENS SOCORRO METAB OLIC PANEL calcium 9.5 mg/dL 8.4-10 .2 Not Available [facility] (Lab) [address] [place], [address], 12/12/2021 19:20:54 12/13/19 22 12/12/2021 COMPR EHENS SOCORRO METAB OLIC PANEL total protein 7.1 g/dL 6.3-8. 2 Not Available [facility] (Lab) [address] [place], [address], 12/12/2021 19:20:54 12/13/19 22 12/12/2021 COMPR EHENS SOCORRO METAB OLIC PANEL albumin 4.5 g/dL 3.0-4. 4 high Not Available [facility] (Lab) [address] [place], [address], 12/12/2021 19:20:54 12/13/19 22 12/12/2021 COMPR EHENS SOCORRO METAB OLIC PANEL globulin 2.6 g/dL 2.6-4. 2 Not Available [facility] (Lab) [address] [place], [address], 12/12/2021 19:20:54 12/13/19 22 12/12/2021 COMPR EHENS SOCORRO METAB OLIC PANEL A/G ratio 1.7 ratio 1.0-2. 0 Not Available [facility] (Lab) [address] [place], [address], 12/12/2021 19:20:54 12/13/19 22 12/12/2021 CBC/C OMPLE TE BLD COUNT W/DIF F white blood cells 6.0 x10'3 /uL 4.2-10 .8 Not Available [facility] (Lab) [address] [place], [address], 12/12/2021 17:18:39 12/13/19 22 12/12/2021 CBC/C OMPLE TE BLD COUNT W/DIF F red blood cells 4.16 x10'6 /uL 4.10-5 .80 Not Available [facility] (Lab) [address] [place], [address], 12/12/2021 17:18:39 12/13/19 22 12/12/2021 CBC/C OMPLE TE BLD COUNT W/DIF F hemoglobin 12.6 g/dL 13.2-1 7.0 low Not Available [facility] (Lab) [address] [place], [address], 12/12/2021 17:18:39 12/13/19 22 12/12/2021 CBC/C OMPLE TE BLD COUNT W/DIF F hematocrit 37.7 % 39.3-5 0.0 low Not Available [facility] (Lab) [address] [place], [address], 12/12/2021 17:18:39 12/13/19 22 12/12/2021 CBC/C OMPLE TE BLD COUNT W/DIF F mean red cell volume 90.6 fL 80.0-9 7.0 Not Available [facility] (Lab) [address] [place], [address], 12/12/2021 17:18:39 12/13/19 22 12/12/2021 CBC/C OMPLE TE BLD COUNT W/DIF F mean red cell hemoglobin 30.3 pg 27.0-3 3.0 Not Available [facility] (Lab) [address] [place], [address], 12/12/2021 17:18:39 12/13/19 22 12/12/2021 CBC/C OMPLE TE BLD COUNT W/DIF F mean RBC HGB concentratio n 33.4 g/dL 31.0-3 6.0 Not Available [facility] (Lab) [address] [place], [address], 12/12/2021 17:18:39 12/13/19 22 12/12/2021 CBC/C OMPLE TE BLD COUNT W/DIF F red cell distribution width 12.9 % 11.8-1 5.5 Not Available [facility] (Lab) [address] [place], [address], 12/12/2021 17:18:39 12/13/19 22 12/12/2021 CBC/C OMPLE TE BLD COUNT W/DIF F platelets 275 x10'3 /uL 150-40 0 Not Available [facility] (Lab) [address] [place], [address], 12/12/2021 17:18:39 12/13/19 22 12/12/2021 CBC/C OMPLE TE BLD COUNT W/DIF F mean platelet volume 9.3 fL 9.0-12 .4 Not Available [facility] (Lab) [address] [place], [address], 12/12/2021 17:18:39 12/13/19 22 12/12/2021 CBC/C OMPLE TE BLD COUNT W/DIF F neutrophils 55.5 % 39.0-7 2.0 Not Available [facility] (Lab) [address] [place], [address], 12/12/2021 17:18:39 12/13/19 22 12/12/2021 CBC/C OMPLE TE BLD COUNT W/DIF F lymphocytes 37.5 % 16.0-4 7.0 Not Available [facility] (Lab) [address] [place], [address], 12/12/2021 17:18:39 12/13/19 22 12/12/2021 CBC/C OMPLE TE BLD COUNT W/DIF F monocytes 5.5 % 5.0-12 .0 Not Available [facility] (Lab) [address] [place], [address], 12/12/2021 17:18:39 12/13/19 22 12/12/2021 CBC/C OMPLE TE BLD COUNT W/DIF F eosinophils 1.0 % 1.0-7. 0 Not Available [facility] (Lab) [address] [place], [address], 12/12/2021 17:18:39 12/13/19 22 12/12/2021 CBC/C OMPLE TE BLD COUNT W/DIF F basophils 0.3 % 0.0-2. 0 Not Available [facility] (Lab) [address] [place], [address], 12/12/2021 17:18:39 12/13/19 22 12/12/2021 CBC/C OMPLE TE BLD COUNT W/DIF F immature granulocytes 0.2 % 0.00-0 .50 Not Available [facility] (Lab) [address] [place], [address], 12/12/2021 17:18:39 12/13/19 22 12/12/2021 CBC/C OMPLE TE BLD COUNT W/DIF F neutrophils, absolute count 3.35 x10'3 /uL 1.5-8. 0 Not Available [facility] (Lab) [address] [place], [address], 12/12/2021 17:18:39 12/13/19 22 12/12/2021 CBC/C OMPLE TE BLD COUNT W/DIF F lymphocytes, absolute count 2.26 x10'3 /uL 1.07-3 .43 Not Available [facility] (Lab) [address] [place], [address], 12/12/2021 17:18:39 12/13/19 22 12/12/2021 CBC/C OMPLE TE BLD COUNT W/DIF F monocytes, absolute count 0.33 x10'3 /uL 0.29-0 .99 Not Available [facility] (Lab) [address] [place], [address], 12/12/2021 17:18:39 12/13/19 22 12/12/2021 CBC/C OMPLE TE BLD COUNT W/DIF F eosinophils, absolute count 0.06 x10'3 /uL 0.02-0 .53 Not Available [facility] (Lab) [address] [place], [address], 12/12/2021 17:18:39 12/13/19 22 12/12/2021 CBC/C OMPLE TE BLD COUNT W/DIF F basophils, absolute count 0.02 x10'3 /uL 0.01-0 .08 Not Available [facility] (Lab) [address] [place], [address], 12/12/2021 17:18:39 12/13/19 22 12/12/2021 CBC/C OMPLE TE BLD COUNT W/DIF F immature granulocytes ,absolute 0.01 x10'3 /uL 0.00-0 .05 Not Available [facility] (Lab) [address] [place], [address], 12/12/2021 17:18:39 12/13/19 22 12/12/2021 CBC/C OMPLE TE BLD COUNT W/DIF F nucleated red blood cells 0.0 % -0 Not Available [facility] (Lab) [address] [place], [address], 12/12/2021 17:18:39 12/13/19 22 12/12/2021 CBC/C OMPLE TE BLD COUNT W/DIF F NRBC# 0.00 x10'3 /uL Not Available [facility] (Lab) [address] [place], [address], 12/12/2021 17:18:39 12/20/19 23 12/19/2022 CBC/C OMPLE TE BLD COUNT W/DIF F white blood cells 5.8 x10'3 /uL 4.2-10 .8 Not Available [facility] (Lab) [address] [place], [address], 12/19/2022 17:48:15 06/14/12/19/2022 CBC/C OMPLE TE BLD COUNT W/DIF F red blood cells 4.39 x10'6 /uL 4.10-5 .80 Not Available [facility] (Lab) [address] [place], [address], 12/19/2022 17:48:15 12/20/19 23 12/19/2022 CBC/C OMPLE TE BLD COUNT W/DIF F hemoglobin 12.9 g/dL 13.2-1 7.0 low Not Available [facility] (Lab) [address] [place], [address], 12/19/2022 17:48:15 12/20/1912/19/2022 CBC/C OMPLE TE BLD COUNT W/DIF F hematocrit 39.8 % 39.3-5 0.0 Not Available [facility] (Lab) [address] [place], [address], 12/19/2022 17:48:15 12/20/1912/19/2022 CBC/C OMPLE TE BLD COUNT W/DIF F mean red cell volume 90.7 fL 80.0-9 7.0 Not Available [facility] (Lab) [address] [place], [address], 12/19/2022 17:48:15 12/20/19 23 12/19/2022 CBC/C OMPLE TE BLD COUNT W/DIF F mean red cell hemoglobin 29.4 pg 27.0-3 3.0 Not Available [facility] (Lab) [address] [place], [address], 12/19/2022 17:48:15 12/20/1912/19/2022 CBC/C OMPLE TE BLD COUNT W/DIF F mean RBC HGB concentratio n 32.4 g/dL 31.0-3 6.0 Not Available [facility] (Lab) [address] [place], [address], 12/19/2022 17:48:15 12/20/19 23 12/19/2022 CBC/C OMPLE TE BLD COUNT W/DIF F red cell distribution width 12.7 % 11.8-1 5.5 Not Available [facility] (Lab) [address] [place], [address], 12/19/2022 17:48:15 12/20/19 23 12/19/2022 CBC/C OMPLE TE BLD COUNT W/DIF F platelets 308 x10'3 /uL 150-40 0 Not Available [facility] (Lab) [address] [place], [address], 12/19/2022 17:48:15 12/20/19 23 12/19/2022 CBC/C OMPLE TE BLD COUNT W/DIF F mean platelet volume 9.4 fL 9.0-12 .4 Not Available [facility] (Lab) [address] [place], [address], 12/19/2022 17:48:15 12/20/19 23 12/19/2022 CBC/C OMPLE TE BLD COUNT W/DIF F neutrophils 52.1 % 39.0-7 2.0 Not Available [facility] (Lab) [address] [place], [address], 12/19/2022 17:48:15 12/20/1912/19/2022 CBC/C OMPLE TE BLD COUNT W/DIF F lymphocytes 41.2 % 16.0-4 7.0 Not Available [facility] (Lab) [address] [place], [address], 12/19/2022 17:48:15 12/20/1912/19/2022 CBC/C OMPLE TE BLD COUNT W/DIF F monocytes 5.7 % 5.0-12 .0 Not Available [facility] (Lab) [address] [place], [address], 12/19/2022 17:48:15 12/20/19 23 12/19/2022 CBC/C OMPLE TE BLD COUNT W/DIF F eosinophils 0.5 % 1.0-7. 0 low Not Available [facility] (Lab) [address] [place], [address], 12/19/2022 17:48:15 12/20/19 23 12/19/2022 CBC/C OMPLE TE BLD COUNT W/DIF F basophils 0.3 % 0.0-2. 0 Not Available [facility] (Lab) [address] [place], [address], 12/19/2022 17:48:15 12/20/19 23 12/19/2022 CBC/C OMPLE TE BLD COUNT W/DIF F immature granulocytes 0.2 % 0.00-0 .50 Not Available [facility] (Lab) [address] [place], [address], 12/19/2022 17:48:15 12/20/19 23 12/19/2022 CBC/C OMPLE TE BLD COUNT W/DIF F neutrophils, absolute count 3.00 x10'3 /uL 1.5-8. 0 Not Available [facility] (Lab) [address] [place], [address], 12/19/2022 17:48:15 12/20/1912/19/2022 CBC/C OMPLE TE BLD COUNT W/DIF F lymphocytes, absolute count 2.38 x10'3 /uL 1.07-3 .43 Not Available [facility] (Lab) [address] [place], [address], 12/19/2022 17:48:15 12/20/19 23 12/19/2022 CBC/C OMPLE TE BLD COUNT W/DIF F monocytes, absolute count 0.33 x10'3 /uL 0.29-0 .99 Not Available [facility] (Lab) [address] [place], [address], 12/19/2022 17:48:15 12/20/19 23 12/19/2022 CBC/C OMPLE TE BLD COUNT W/DIF F eosinophils, absolute count 0.03 x10'3 /uL 0.02-0 .53 Not Available [facility]Lab[facility] [address] [facility] [place], [address], 12/19/2022 17:48:15 12/20/19 23 12/19/2022 CBC/C OMPLE TE BLD COUNT W/DIF F basophils, absolute count 0.02 x10'3 /uL 0.01-0 .08 Not Available [facility] (Lab) [address] [place], [address], 12/19/2022 17:48:15 12/20/19 23 12/19/2022 CBC/C OMPLE TE BLD COUNT W/DIF F immature granulocytes ,absolute 0.01 x10'3 /uL 0.00-0 .05 Not Available [facility] (Lab) [address] [place], [address], 12/19/2022 17:48:15 12/20/19 23 12/19/2022 CBC/C OMPLE TE BLD COUNT W/DIF F nucleated red blood cells 0.0 % -0 Not Available [facility] (Lab) [address] [place], [address], 12/19/2022 17:48:15 12/20/19 23 12/19/2022 CBC/C OMPLE TE BLD COUNT W/DIF F NRBC# 0.00 x10'3 /uL Not Available [facility] (Lab) [address] [place], [address], 12/19/2022 17:48:15 12/20/19 23 12/19/2022 COMPR EHENS SOCORRO METAB OLIC PANEL sodium 141 mmol/ L 137-14 5 Not Available [facility] (Lab) [address] [place], [address], 12/19/2022 19:28:25 12/20/19 23 12/19/2022 COMPR EHENS SOCORRO METAB OLIC PANEL potassium 4.3 mmol/ L 3.5-5. 1 Not Available [facility] (Lab) [address] [place], [address], 12/19/2022 19:28:25 12/20/19 23 12/19/2022 COMPR EHENS SOCORRO METAB OLIC PANEL chloride 106 mmol/ L 98-107 Not Available [facility] (Lab) [address] [place], [address], 12/19/2022 19:28:25 12/20/19 23 12/19/2022 COMPR EHENS SOCORRO METAB OLIC PANEL carbon dioxide 25 mmol/ L 22-30 Not Available [facility] (Lab) [address] [place], [address], 12/19/2022 19:28:25 12/20/19 23 12/19/2022 COMPR EHENS SOCORRO METAB OLIC PANEL anion gap 14.3 mmol/ L 14-22 Not Available [facility] (Lab) [address] [place], [address], 12/19/2022 19:28:25 12/20/19 23 12/19/2022 COMPR EHENS SOCORRO METAB OLIC PANEL glucose 86 mg/dL 70-99 Not Available [facility] (Lab) [address] [place], [address], 12/19/2022 19:28:25 12/20/19 23 12/19/2022 COMPR EHENS SOCORRO METAB OLIC PANEL BUN 12 mg/dL 8-19 Not Available [facility] (Lab) [address] [place], [address], 12/19/2022 19:28:25 0612/19/2022 COMPR EHENS SOCORRO METAB OLIC PANEL creatinine 0.83 mg/dL 0.66-1 .25 Not Available [facility] (Lab) [address] [place], [address], 12/19/2022 19:28:25 12/20/1912/19/2022 COMPR EHENS SOCORRO METAB OLIC PANEL GFR >60 Refer ence Range : [place] [facility] GFR Healt hy Adult : >60 mL/mi n/1.7 3 m2 Chron ic Kidne y Disea se: 15-60 mL/mi n/1.7 3 m2 Kidne y Failu re: <15/m L/min /1.73 m2 www.n iddk. nih.g ov The MDRD study equat ion has not been valid ated in child gael <18 years of age; pregn ant women ; the elder ly >85 years of age; or in some racia l or ethni c subgr oups, such as [employer]. Outsi de the valid ated kyrie eters , estim ated GFR is less accur ate, requi ring clini davidson judgm ent on a case- by-ca se basis . Clini davidson inter preta tion for other races and ages must be made by the clini noemi. The MDRD study equat ion has not been valid ated for the evalu ation of serum creat inine relat ed to nutri latrice l statu s or medic ation usage . For perso ns <18 years of age, a pedia tric GFR calcu lator is avail able on the F websi te: https ://ww w.kid kimmy.o rg/pr skipess ional s/kdo qi/gf r_cal culat or Not Available [facility] (Lab) [address] [place], [address], 12/19/2022 19:28:25 12/20/1912/19/2022 COMPR EHENS SOCORRO METAB OLIC PANEL alkaline phosphatase 68 U/L 38-126 Not Available [facility] (Lab) [address] [place], [address], 12/19/2022 19:28:25 12/20/19 23 12/19/2022 COMPR EHENS SOCORRO METAB OLIC PANEL alanine aminotransfe rase 22 U/L 0-50 Not Available [facility] (Lab) [address] [place], [address], 12/19/2022 19:28:25 12/20/19 23 12/19/2022 COMPR EHENS SOCORRO METAB OLIC PANEL aspartate aminotransfe rase 26 U/L 15-46 Not Available [facility] (Lab) [address] [place], [address], 12/19/2022 19:28:25 12/20/19 23 12/19/2022 COMPR EHENS SOCORRO METAB OLIC PANEL bilirubin, total 0.20 mg/dL 0.20-1 .30 Not Available [facility] (Lab) [address] [place], [address], 12/19/2022 19:28:25 12/20/19 23 12/19/2022 COMPR EHENS SOCORRO METAB OLIC PANEL calcium 9.5 mg/dL 8.4-10 .2 Not Available [facility] (Lab) [address] [place], [address], 12/19/2022 19:28:25 12/20/19 23 12/19/2022 COMPR EHENS SOCORRO METAB OLIC PANEL total protein 7.3 g/dL 6.3-8. 2 Not Available [facility] (Lab) [address] [place], [address], 12/19/2022 19:28:25 12/20/19 23 12/19/2022 COMPR EHENS SOCORRO METAB OLIC PANEL albumin 4.2 g/dL 3.0-4. 4 Not Available [facility] (Lab) [address] [place], [address], 12/19/2022 19:28:25 12/20/19 23 12/19/2022 COMPR EHENS SOCORRO METAB OLIC PANEL globulin 3.1 g/dL 2.6-4. 2 Not Available [facility] (Lab) [address] [place], [address], 12/19/2022 19:28:25 12/20/19 23 12/19/2022 COMPR EHENS SOCORRO METAB OLIC PANEL A/G ratio 1.4 ratio 1.0-2. 0 Not Available [facility] (Lab) [address] [place], [address], 12/19/2022 19:28:25 12/20/1912/19/2022 LIPID PANEL cholesterol 162 mg/dL 140-19 9 NIH HENRY NSUS RECOM MENDA TION FOR ONEAL STERO L: ADULT CHILD LOW RISK: <200 <170 BORDE RLINE : <200- 239 ----- HIGH RISK: >240 >200 Not Available [facility] (Lab) [address] [place], [address], 12/19/2022 19:28:27 12/20/19 23 12/19/2022 LIPID PANEL triglyceride s 96 mg/dL 0-150 NIH HENRY NSUS REPOR T RECOM MENDA TION FOR TRIGL YCERI BRE: ADULT CHILD LOW RISK: <150 ----- BODER LINE: 150-1 99 ----- HIGH RISK: >200 ----- Not Available [facility] (Lab) [address] [place], [address], 12/19/2022 19:28:27 12/20/19 23 12/19/2022 LIPID PANEL HDL cholesterol 72 mg/dL 40- Not Available [facility] (Lab) [address] [place], [address], 12/19/2022 19:28:27 12/20/19 23 12/19/2022 LIPID PANEL LDL cholesterol, calculated 71 mg/dL 0-130 NIH HENRY NSUS REPOR T RECOM MENDA TIONS FOR LDL: ADULT CHILD LOW RISK <130 <110 (OPTI MAL LDL) <100 ----- BORDE RLINE : 130-1 59 ----- HIGH RISK: >160 >130 A TRIGL YCERI DE RESUL T >400 INVAL IDATE S THE CALCU LATIO N FOR LDL FRACT IONAT ION - THE LDL RESUL T WILL NOT BE REPOR ENRICO. Not Available [facility] (Lab) [address] [place], [address], 12/19/2022 19:28:27 12/20/19 23 12/19/2022 PSA SCREE N PSA medicare screen 1.61 NG/mL 0.00-4 .00 Not Available [facility] (Lab) [address] [place], [address], 12/19/2022 23:22:50 12/20/19 23 12/20/2022 VITAM IN D 25-HY DROXY [id number] 47.7 NG/mL 30-100 Vitam in D Statu s: Defic ient: <20 ng/mL Insuf ficie nt: 20-29 ng/mL Suffi cient : 30-10 0 ng/mL Not Available [facility] (Lab) [address] [place], [address], 12/20/2022 03:39:50 Result Notes None recorded. 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 Active Not Available [facility] 3 04:52:40 Pure hypercholeste rolemia 309063882 Active Not Available [facility] 3 04:52:40 Anemia 891014889 Active 2021 Not Available [facility] 3 04:52:40 Hypertrophy of breast 807325000 Active Not Available [facility] 3 04:52:40 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 Procedures Surgical History Date Name Laterality Status Provider Name and Address Organization Details Recorded Time 12/23/19 13 Partial mastectomy completed Not Available [facility] 09/05/2022 04:44:20 11/30/19 11 Colonoscopy completed Not Available [facility] 09/06/19 23 04:44:20 Imaging Results None recorded. Procedure Notes None recorded. Medical Equipment None Reported. Allergies No known drug allergies Medications Name Sig Start Date Stop Date Status Note LastModified by Organization Details LastModified Time celecoxib 200 mg capsule TAKE 1 CAPSULE BY MOUTH TWICE DAILY NEEDED active Not Available Not Available No t Available amoxicillin 500 mg capsule 09/22 completed Not Available Not Available Not Available rabeprazole 20 mg tablet,law yed release Take 1 tablet(s) every day by oral route for 90 days. 04/12 completed Not Available Not Available Not Available trazodone 50 mg tablet active Not Available Not Available Not Available azithromyci n 250 mg tablet TAKE 2 TABLETS BY MOUTH TODAY, THEN TAKE 1 TABLET DAILY FOR 4 DAYS 12/08 completed Not Available Not Available Not Available tizanidine 4 mg tablet take 1 tablet QHS active Not Available Not Available No t Available hydrocodone 5 mg-acetamin ophen 325 mg tablet 10/09 completed Not Available Not Available Not Available prednisone 20 mg tablet 11/13 completed Not Available Not Available Not Available Viagra 50 mg tablet Take 1 tablet as needed by oral route. 10/09 completed Not Available Not Available Not Available peg-electro lyte solution 420 gram oral solution 12/17 completed Not Available Not Available Not Available amoxicillin 500 mg tablet Take 1 tablet 3 times a day by oral route. 09/22 completed Not Available Not Available Not Available meloxicam 7.5 mg tablet TAKE 1 TABLET BY MOUTH DAILY NEEDED FOR PAIN active Not Available Not Available No t Available isoniazid 300 mg tablet 11/12 completed Not Available Not Available Not Available pantoprazol e 40 mg tablet,law yed release TAKE 1 TABLET BY MOUTH EVERY DAY 06/15 completed Not Available Not Available Not Available bisacodyl 5 mg tablet,law yed release TAKE 6 TABLETS BY MOUTH AT 8 AM ON 07/11 completed Not Available Not Available Not Available diclofenac sodium 50 mg tablet,law yed release TAKE 1 TABLET BY MOUTH TWICE A DAY 06/15 completed Not Available Not Available Not Available ergocalcife rol (vitamin D2) 1,250 mcg (50,000 unit) capsule TAKE 1 CAPSULE MONTHLY active Not Available Not Available No t Available Viagra 100 mg tablet one tablet as needed 12/17 completed Not Available Not Available Not Available methylpredn isolone 4 mg tablets in a dose pack uud 05/13 completed Not Available Not Available Not Available amoxicillin 875 mg-potassiu m clavulanate 125 mg tablet Take 1 tablet twice a day by oral route for 10 days. 12/09 completed Not Available Not Available Not Available rosuvastati n 10 mg tablet TAKE 1 TABLET BY MOUTH EVERY DAY active Not Available Not Available No t Available Claritin 10/09 completed Not Available Not Available Not Available Vitamin D3 2018 active Not Available Not Available Not Avai lable multivitami n 2020 active Not Available Not Available Not Avai lable Fluad 2018- 65yr up(PF)45 mcg(15 mcgx3)/0.5 mL intramuscul ar syringe ADM 0.5ML IM UTD 06/10 completed Not Available Not Available Not Available Fluzone High-Dose Quad (PF) 240 mcg/0.7 mL IM syringe PHARMACY ADMINISTE RED 06/10 completed Not Available Not Available Not Available Paxlovid 300 mg (150 mg x 2)-100 mg tablets in a dose pack USE DIRECTED active Not Available Not Available No t Available Vitals Date Recorded Body mass index (BMI) Body height Heart rate Body temperature Body weight Systolic blood pressure Diastolic blood pressure Provider Name and Address Organization Details Last Updated DateTime 2 26.4 kg/m2 177.8 cm 56 /min 96.4 [degF] 47700 g 120 mm[Hg] 80 mm[Hg] Not Available [facility] 3 04:46:00 Date Recorded Body height Body mass index (BMI) Body weight Body temperature Heart rate Oxygen saturation Oxygen saturation in Arterial blood by Pulse oximetry Systolic blood pressure Diastolic blood pressure Provider Name and Address Organization Details Last Updated DateTime 3 177.8 cm 25.4 kg/m2 95203.8 5 g 97.8 [degF] 65 /min 98 % 98 % 112 mm[Hg] 68 mm[Hg] Autumn Blount RN [place] - [facility] [place] [facility] 3 10:48:08 Date Recorded Body mass index (BMI) Body height Heart rate Body temperature Body weight Systolic blood pressure Diastolic blood pressure Provider Name and Address Organization Details Last Updated DateTime 1 27.1 kg/m2 177.8 cm 60 /min 98.6 [degF] 37263.9 6 g 112 mm[Hg] 66 mm[Hg] Not Available [facility] 3 04:46:00 Date Recorded Body mass index (BMI) Body height Heart rate Body temperature Body weight Systolic blood pressure Diastolic blood pressure Provider Name and Address Organization Details Last Updated DateTime 2 25.5 kg/m2 177.8 cm 77 /min 98.7 [degF] 62704.4 4 g 124 mm[Hg] 72 mm[Hg] Not Available [facility] 3 04:46:00 Date Recorded Body height Body mass index (BMI) Body weight Body temperature Heart rate Oxygen saturation Oxygen saturation in Arterial blood by Pulse oximetry Systolic blood pressure Diastolic blood pressure Provider Name and Address Organization Details Last Updated DateTime 3 177.8 cm 24.4 kg/m2 57612.7 g 99.1 [degF] 84 /min 100 % 100 % 120 mm[Hg] 72 mm[Hg] Antonia mata, AMINA [place] - [facility] 3 11:19:18 Social History Question Answer Notes LastModified by Organization Details LastModified Time Tobacco Smoking Status Former Smoker quit Jul 2017 Not Available [facility] 09/05/2022 04:21:07 Do You Have An Advance Directive? Yes Living Will MIGRATION.030 [id number] Information not available 09/05/2022 Are You Blind Or Do You Have Difficulty Seeing? No MIGRATION.030 245025 Information not available 09/05/2022 What Is Your Level Of Caffeine Consumption? Moderate MIGRATION.030 [id number] Information not available 09/05/2022 How Much Tobacco Do You Chew? None MIGRATION.030 922470 Information not available 09/05/2022 In The 14 Days Before Symptom Onset, Have You Had Close Contact With A Laboratory-confi rmed COVID-19 While That Case Was Ill? No MIGRATION.030 [id number] Information not available 09/05/2022 In The 14 Days Before Symptom Onset, Have You Had Close Contact With A Person Who Is Under Investigation For COVID-19 While That Person Was Ill? No MIGRATION.030 [id number] Information not available 09/05/2022 Are You Deaf Or Do You Have Serious Difficulty Hearing? No MIGRATION.030 699209 Information not available 09/05/2022 What Type Of Diet Are You Following? REGULAR MIGRATION.030 467154 Information not available 09/05/2022 Which Illicit Or Recreational Drugs Have You Used? None MIGRATION.030 122548 Information not available 09/05/2022 What Is The Highest Grade Or Level Of School You Have Completed Or The Highest Degree You Have Received? [id number] MIGRATION.300 [id number] Information not available 09/05/2022 Have There Been Any Changes To Your Family Or Social Situation? No MIGRATION.030 [id number] Information not available 09/05/2022 What Is The Fluoride Status Of Your Home? Unknown MIGRATION.030 392173 Information not available 09/05/2022 When Did You Quit Smoking? 1-5yearssinannabelle ruiz MIGRATION.030 930964 Information not available 09/05/2022 Are There Any Guns Present In Your Home? No MIGRATION.0301 [id number] Information not available 09/05/2022 Do You Use Insect Repellent Routinely? No MIGRATION.0301 823125 Information not available 09/05/2022 Where Do You Live? SingleLevelHouse MIGRATION.0301 [id number] Information not available 09/05/2022 Do You Have A Medical Power Of Child Abuse Worker? Yes MIGRATION.0301 [id number] Information not available 09/05/2022 What Was The Date Of Your Most Recent Tobacco Screening? 12/17/2022 [email or web address] Information not available 12/17/2022 Have You Ever Been Counseled For Unhealthy Alcohol Use? No MIGRATION.0301 [id number] Information not available 09/05/2022 Do You Have Any Pets? No MIGRATION.0301 [id number] Information not available 09/05/2022 What Is Your Relationship Status? MIGRATION.0301 [id number] Information not available 09/05/2022 Do You Use Your Seat Belt Or Car Seat Routinely? Yes MIGRATION.0301 [id number] Information not available 09/05/2022 Do You Have Smoke And Carbon Monoxide Detectors In Your Home? Yes MIGRATION.0301 [id number] Information not available 09/05/2022 At What Age Did You Start Smoking Tobacco? 17 MIGRATION.0301 [id number] Information not available 09/05/2022 Are You Passively Exposed To Smoke? No MIGRATION.0301 630894 Information not available 09/05/2022 Are There Any Smokers In Your House? No MIGRATION.0301 [id number] Information not available 09/05/2022 How Much Tobacco Do You Smoke? No MIGRATION.0301 [id number] Information not available 09/05/2022 What Types Of Sporting Activities Do You Participate In? Golf MIGRATION.0301 715190 Information not available 09/05/2022 Do You Use Sunscreen Routinely? No MIGRATION.0301 699262 Information not available 09/05/2022 Have You Recently Traveled Abroad? No MIGRATION.0301 [id number] Information not available 09/05/2022 Do You Have Difficulty Walking Or Climbing Stairs? No MIGRATION.0301 860870 Information not available 09/05/2022 Do You Have Any Dietary Restrictions? No MIGRATION.0301 922398 Information not available 09/05/2022 Sex: Male Functional Status Question Answer Note LastModified by [employer] Details LastModified Time Do you use any illicit or recreational drugs? No MIGRATION.[id number] 2025 Information not available 09/05/2022 Do you or have you ever used any other forms of tobacco or nicotine? Yes MIGRATION.329239 6468 Information not available 09/05/2022 What is your level of alcohol consumption? Occasional MIGRATION.595874 3416 Information not available 09/05/2022 Do you or have you ever used smokeless tobacco? Never used smokeless tobacco MIGRATION.784316 2408 Information not available 09/05/2022 Do you have transportation difficulties? No MIGRATION.924788 3537 Information not available 09/05/2022 Are you able to walk? YESWOREST MIGRATION.035713 1568 Information not available 09/05/2022 Do you have difficulty doing errands alone? No MIGRATION.987623 1200 Information not available 09/05/2022 Are you able to care for yourself? Yes MIGRATION.750835 9892 Information not available 09/05/2022 What is your occupation? [employer] MIGRATION.575610 3011 Information not available 09/05/2022 Do you have difficulty dressing or bathing? No MIGRATION.761672 4174 Information not available 09/05/2022 Do you or have you ever used e-cigarettes or vape? Current user of electronic cigarettes MIGRATION.094415 8445 Information not available 09/05/2022 What is your exercise level? Moderate MIGRATION.024263 4648 Information not available 09/05/2022 Mental Status Question Answer Note LastModified by [employer] Details LastModified Time Do you feel stressed (tense, restless, nervous, or anxious, or unable to sleep at night)? [id number] MIGRATION.[id number] 26 Information not available 09/05/2022 Do you have difficulty concentrating, remembering or making decisions? No MIGRATION.13412199 26 Information not available 09/05/2022 Family History Relationship Description Onset Age of this Age Resolved Age Notes LastModified by Organization Details LastModified Time Mother Hypertensive disorder MIGRATION.066 [id number] Not available 09/05/2022 04:44:23 Father General health good MIGRATION.738 [id number] Not available 09/05/2022 04:44:23 Medical History Condition Response NERVE DISEASE N BLINDNESS N RHEUMATIC FEVER N KIDNEY STONES N BLADDER PROBLEMS N MRSA N OTHER # 1 Y POLIO N LUNG DISEASE/DISORDER N RADIATION / CHEMOTHERAPY N COPD N Other # 2 N BLOOD DISEASES N EAR OR HEARING PROBLEMS N MUMPS N BOWEL PROBLEMS N DEPRESSION (INCLUDING POST ) N STROKE/TIA N ULCERS N BENIGN PROSTATIC HYPERPLASIA N MEASLES N MYOCARDIAL INFARCTION N OBESITY N GERD/NAUSEA Y ANEURYSM N URINARY/BLADDER/KIDNEY PROBLEMS N CORONARY ARTERY DISEASE (CAD) N ADDICTION CONCERNS N ENDOMETRIOSIS N Impotence N USE OF BLOOD THINNERS N SKIN PROBLEMS N GASTROINTESTINAL DISORDER N PERIPHERAL VASCULAR DISEASE N MUSCLE,JOINT OR BONE PROBLEMS N GASTROINTESTINAL BLEEDING N BLOOD CLOTS N ASTHMA N CATARACTS N ERECTILE DYSFUNCTION N VARICOSITIES N GI PROBLEMS N Low Testosterone N INFERTILITY N AIDS/HIV N CHEMOTHERAPY / RADIATION N LIVER DISEASE N MALE HYPOGONADISM N HYPERTENSION N Deficiency Y TOURETTE'S N ANXIETY DISORDER N BLOOD TRANSFUSION N ANEMIA/BLOOD DISORDER N CHRONIC EAR INFECTIONS N BRONCHITIS N TUBERCULOSIS N GLAUCOMA N FOOT PROBLEM N DIVERTICULITIS N SLEEP APNEA N CHICKENPOX N INFECTIOUS DISEASE N HEART ARRHYTHMIA N PROSTATE N INSOMNIA N HIGH CHOLESTEROL / HYPERLIPIDEMIA Y HYPERTHYROIDISM N EYE PROBLEMS N EDEMA N CHRONIC PAIN SYNDROME N HYPOTHYROIDISM N CAROTID BLOCKAGE N CONSTIPATION N BACK / NECK PROBLEMS N HAVE YOU BEEN HOSPITALIZED OR SEEN IN [facility] IN THE PAST YEAR ? N ATHEROSCLEROSIS N BREAST PROBLEMS N DIALYSIS N ECZEMA N OSTEOPOROSIS N ARTHRITIS N NO SIGNIFICANT PAST MEDICAL HISTORY N APPENDICITIS N DIABETES, TYPE N BAD TEETH N ENT N HEARTBURN / REFLUX N AUTISM SPECTRUM DISORDER (ASD) N HEPATITIS / LIVER DISEASE N GOUT N SLEEP DISORDER N ALZHEIMER'S DISEASE N Brain Problems N HERPES N DEMENTIA N HEADACHES/MIGRAINES N SEIZURES/EPILEPSY N VASCULAR DISEASE N PACEMAKER N Blood Disorder N DIZZINESS N HEART DISEASE/HEART PROBLEMS N KIDNEY DISEASE N MULTIPLE SCLEROSIS N CARDIAC ARRHYTHMIA N CANCER: SPECIFY N ATRIAL FIBRILLATION N Gall Stones N PULMONARY EMBOLISM N AUTOIMMUNE DISEASE N Immunizations Vaccine Type Date Status Note Provider Nam e and Address Organization Details Recorded Time Influenza, high-dose, quadrivalent, PF 0 completed Not Available [facility] 09/05/2022 05:03:42 Influenza, split virus, quadrivalent, preservative 9 completed Not Available [facility] 09/05/2022 05:03:42 Influenza, split virus, quadrivalent, preservative 7 completed Not Available [facility] 09/05/2022 05:03:42 Influenza, split virus, quadrivalent, preservative 6 completed Not Available [facility] 09/05/2022 05:03:42 COVID-19, mRNA, LNP-S, PF, 30 mcg/0.3 mL dose 2 completed Not Available [facility] 09/05/2022 05:03:42 COVID-19, mRNA, LNP-S, PF, 30 mcg/0.3 mL dose 1 completed Not Available [facility] 09/05/2022 05:03:42 COVID-19, mRNA, LNP-S, PF, 30 mcg/0.3 mL dose 1 completed Not Available [facility] 09/05/2022 05:03:42 Tdap 8 completed Not Available [facility] 09/05/2022 05:03:42 Influenza, high-dose, quadrivalent, PF 2 completed Not Available [facility] 09/05/2022 05:03:43 Influenza, high-dose, quadrivalent, PF 1 completed Not Available [facility] 09/05/2022 05:03:43 Influenza, split virus, quadrivalent, PF 8 completed Not Available [facility] 09/05/2022 05:03:43 Td (adult), 2 Lf tetanus toxoid, preservative free, adsorbed 8 completed Not Available [facility] 09/05/2022 05:03:43 Influenza, split virus, trivalent, preservative 4 completed Not Available [facility] 09/05/2022 05:03:43 Influenza, split virus, trivalent, preservative 3 completed Not Available [facility] 09/05/2022 05:03:43 Past Encounters Encounter ID Performer Location Encounter Start Date Encounter Closed Date Diagnosis/Indication Diagnosis SNOMED-CT Code Diagnosis ICD10 Code Diagnosis Note [id number] Gilberto Ceja MD [facility] [place] [address] [facility] , [place] [address] 11/15/2020 00:00:00 11/15/2020 22:40:14 [id number] Gilberto Ceja MD [facility] Internal Med [facility] [address] [place] [address] [address] [address] 11/18/2020 00:00:00 11/18/2020 10:09:41 [id number] Gilberto Ceja MD [facility] Internal Med [facility] [address] [place] [address] [address] [address] 12/09/2020 00:00:00 12/25/2020 11:51:35 [id number] Gilberto Ceja MD [facility] Internal Med [facility] [address] [place] [address] [address] 06/09/2021 00:00:00 07/03/2021 14:33:01 [id number] Gilberto Ceja MD [facility] Internal Med [facility] [address] [place] [address] [address] 12/08/2021 00:00:00 01/08/2022 15:07:30 [id number] Gilberto Ceja MD [facility] Internal Med [facility] [address] [place] [address] [address] 06/15/2022 00:00:00 07/22/2022 22:16:22 [id number] Gilberto Ceja MD [facility] Internal Med [facility] [address] [place] [address] [address] 12/17/2022 10:39:21 12/17/2022 12:15:54 Pure hypercholesterolemia 799181743 E78.00 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 Screening for malignant neoplasm of prostate 261227493 Z12.5 Long-term drug therapy 855123345 Z79.899 Gastroesop hageal reflux disease 571336717 K21.9 Fibromyositis 89650129 M 79.7 [id number] Gilberto Ceja MD [facility] Internal Med [facility] [address] [place] [address] [address] 06/24/2023 11:06:51 06/24/2023 12:02:33 Pure hypercholesterolemia 918077886 E78.00 Gastroesop hageal reflux disease 928555626 K21.9 Fibromyositis 59036276 M 79.7 Eczema 21928949 L30.9 Health Concerns Section Related Observation LastModified by Organization Detai ls LastModified Time None Recorded Concern Status LastModified by Organization Details LastModified Time None Recorded Advance Directives Directive Y: living will Payers Encounter Date Sequence Insurance Name Policy Number Policy Dominguez Covered Member ID Dominguez Member ID Guarantor Name 12/17/2022 1 [facility] (MEDICARE REPLACEMENT/A DVANTAGE - PPO) [id number] Cresencio Rodrigues [id number] Cresencio Rodrigues 06/24/2023 [facility] (MEDICARE REPLACEMENT/A DVANTAGE - PPO) [id number] Cresencio Rodrigues [id number] Cresencio Rodrigues Notes Date Note Type Note Provider Name and Address Organization Details Recorded Time 12/17/2022 text/html Dyslipidemia escobar s try to follow a low-fat diet. Low vitamin-D no bone pain at this time is to have his levels checked. Current no nausea vomiting heartburn. Fibromyositis waxes wanes right now he is in a pretty good spot Gilberto Ceja MD [address], [employer], [place], [address], [employer] 12/22/2022 21:35:47 06/24/2023 text/html Dyslipidemia escobar s try to follow a low-fat diet. Low vitamin-D no bone pain at this time is to have his levels checked. Current no nausea vomiting heartburn. Fibromyositis waxes wanes right now he is in a pretty good spot. And that continues today. Does have a little bit of an itchy rash in his right antecubital fossa Gilberto Ceja MD [address], [address], [place], [address], [employer] 06/24/2023 23:08:05
== END 2024-12-15 14:36 | disposition home or self-care (01) ==
PROVIDERS: PCP Internal Medicine; Visit Provider Internal Medicine
DX: I67.82 Cerebral ischemia (principal)
CPT/HCPCS: 70553; A9577